=== PATIENT | female | born 1965 | race Caucasian/White ===

== ENCOUNTER 2019-09-15 17:48 | Inpatient (IN) ==
[2019-09-15] MEDS ORDERED: SODIUM CHLORIDE 0.9% 1000ML 1,000 ML IV ONE (18:02)
[2019-09-15] MEDS ORDERED: ONDANSETRON INJ 2 MG/ML 2 ML VIAL IV STA (18:02)
[2019-09-15] MEDS ORDERED: KETOROLAC TROMETHAMINE 15 MG/ML VIAL IV STA (18:02)
--- NOTE | 2019-09-15 18:05 | Emergency Department Note ---
History of Present Illness General Chief complaint: Vomiting Stated complaint: VOMITING, GENERAL MALAISE Time Seen by Provider: 09/15/19 17:54 History of Present Illness Provider complaint: Vomiting Onset (ago): day(s) 4 Location: abdomen Radiation: abdomen Severity: moderate Maximum Pain Intensity: 6 Current Pain Intensity: 6 Quality: + stabbing, + aching, + sharp and + dull Relieved By: + none Exacerbated By: + eating Associated symptoms: + nausea/vomiting; no confusion, no chest pain, no cough, no fever/chills, no headaches and no shortness of breath 53-year-old female presents emergency department with vomiting. She states that she began vomiting on 1 hour after eating some [employer] wings. She states since she has vomited 6-8 times. No hematemesis, coffee-ground emesis, or bilious vomiting. No melena or hematochezia. She also reports abdominal pain. Pain is located in the epigastric area. No chest pain. Patient also reports some shortness of breath. She reports feeling increasingly fatigued. No anosmia or loss of taste. No recent travel. No cough or hemoptysis. Patient does report she has a history of hypertension diabetes however she has not taken any medications in years due to her insurance status. Home Medications Home Medications Medication Instructions Recorded Confirmed Type No Known Home Medications 09/15/19 09/15/19 History Allergies Allergy/AdvReac Type Severity Reaction Status Date / Time No Known Allergies Allergy Verified 09/15/19 18:22 Past Med/Surg History Medical History (Updated 09/15/19 @ 20:32 by Tyron Molina) Diabetes Hypertension No pertinent family history Surgical History (Updated 09/15/19 @ 18:08 by Tyron Molina) S/P tubal ligation Social History Preferred Language: Urdu Feels Safe at Home: Yes Smoking Status: Never smoker Review of Systems A total of 10 systems reviewed and were otherwise negative Physical Exam Vital Signs Vital Signs - 24 hr 09/15/19 17:51 09/15/19 20:05 Temperature 36.8 C Temperature Source Oral Pulse Rate 117 H Pulse Rate [Right Finger] 81 Pulse Strength Normal Respiratory Rate 16 20 Respiratory Depth Normal Respiratory Pattern Regular Blood Pressure 155/83 H Blood Pressure [Left Arm] 144/86 H Blood Pressure Mean 107 Blood Pressure Mean [Left Arm] 105 Blood Pressure Position Sitting Pulse Oximetry 96 96 Oxygen Delivery Method Room Air Room Air Sepsis Recent Fever Within 48 Hours No Sepsis Action Taken by Nursing No Action Required Physical Exam GENERAL: She is oriented to person, place, and time. She appears well-developed and well-nourished. She does not appear distressed. HENT: Exam performed. -Head: Normocephalic and atraumatic. -Right Ear: External ear normal. No mastoid tenderness. -Left Ear: External ear normal. No mastoid tenderness. -Mouth/Throat: The oropharynx is clear and moist. No trismus in the jaw. No dental abscesses or uvula swelling. No oropharyngeal exudate or tonsillar abscesses. EYES: Conjunctivae and EOM are normal. Pupils are equal, round, and reactive to light. Right eye exhibits no discharge. Left eye exhibits no discharge. No scleral icterus. NECK: Normal range of motion. Neck supple. No JVD present. No spinous process tenderness present. No carotid bruit present. No rigidity. No tracheal deviation and normal range of motion present. No Brudzinski's sign and no Kernig's sign noted. CV: Tachycardic rate, regular rhythm, normal heart sounds and intact distal pulses. There is no peripheral edema. Palpable radial pulses bue. PULM/CHEST: Effort normal and breath sounds normal. No respiratory distress. No stridor. She has no wheezes. She has no rales. -Chest Wall: She exhibits no tenderness. ABD: The abdomen is obese and soft. Bowel sounds are normal. She has no distension. No mass is present. There is tenderness to palpation of the epigastric and right upper quadrant area. There is no rebound, no guarding, no Garcia's sign and no tenderness at McBurney's point. Rovsig negative MUSC/SKEL: Normal range of motion. There is no peripheral edema, tenderness or deformity. LYMPH: No cervical adenopathy. NEURO: She is alert and oriented to person, place, and time. She has normal str ength. No cranial nerve deficit or sensory deficit. Coordination and gait normal. GCS eye subscore is 4. GCS verbal subscore is 5. GCS motor subscore is 6. Cerebellar tests wnl. SKIN: Skin is warm and dry. She is not diaphoretic. PSYCH: She has a normal mood and affect. Behavior is normal. Judgment and thought content normal. Course Course 1754: The patient was evaluated in room B4. A complete history and physical exam was performed. 2025: Vital signs stable. Labs show an elevated lipase level as well as LFTs. Alkaline phosphatase is also elevated. Ultrasound shows acute cholecystitis. It is thought that the patient is also suffering from gallstone pancreatitis. CTA was negative for PE. I did discuss with general surgery Marcelino Newman PA-C concession supervisor for Dr. Weber he has had the patient be admitted to medicine service. I did discuss with [facility] as they are next for unassigned because the patient states she has no PCP. Dr. Cohen agreed to the admission. Rocephin and Flagyl started for the patient. Administered Medications Ceftriaxone Sodium (Rocephin) 1,000 mg in 50 mls @ 100 mls/hr IV NOW STA Stop: 09/15/19 20:51 Last Admin: 09/15/19 20:30 Dose: 100 mls/hr Documented by: Ioversol (Optiray 320 125ml) 120 ml IV ONCE PRN PRN Reason: Interaction Checking Stop: 09/19/19 19:51 Last Admin: 09/15/19 19:53 Dose: 120 ml Documented by: [id number] Discontinued Medications Sodium Chloride (Nss 1000ml) 1,000 mls @ 999 mls/hr IV .Q1H1M ONE Stop: 09/15/19 19:02 Last Infusion: 09/15/19 20:01 Dose: 0 mls/hr Documented by: [id number] Admin: 09/15/19 18:16 Dose: 999 mls/hr Documented by: [id number] Ketorolac Tromethamine (Toradol) 15 mg IV NOW STA Stop: 09/15/19 18:03 Last Admin: 09/15/19 18:16 Dose: 15 mg Documented by: [id number] Ondansetron HCl (Zofran) 4 mg IV NOW STA Stop: 09/15/19 18:03 Last Admin: 09/15/19 18:16 Dose: 4 mg Documented by: [id number] Medical Decision Making Laboratory Data Result diagrams: 09/15/19 18:10 09/15/19 18:10 Lab Results 09/15/19 09/15/19 09/15/19 Range/Units 18:04 18:10 18:10 WBC 10.47 (4.8-10.8) K/uL RBC 4.91 (4.2-5.4) M/uL Hgb 15.2 (12.0-16.0) g/dL Hct 43.8 (37-47) % MCV 89.2 (80-100) fL MCH 31.0 (25-34) pg MCHC 34.7 (32-36) g/dL RDW Std Deviation 45.1 (36.4-46.3) fL RDW Coeff of Galdino 13.9 (11.5-14.5) % Plt Count 281 (130-400) K/uL MPV 9.6 (7.4-10.4) fL Immature Gran % (Auto) 0.7 % Neut % (Auto) 77.1 % Lymph % (Auto) 7.4 % Terry % (Auto) 13.9 % Eos % (Auto) 0.8 % Baso % (Auto) 0.1 % Immature Gran # (Auto) 0.07 H (0.00-0.02) K/uL Neut # (Auto) 8.08 H (1.4-6.5) K/uL Lymph # (Auto) 0.77 L (1.2-3.4) K/uL Terry # (Auto) 1.46 H (0.11-0.59) K/uL Eos # (Auto) 0.08 (0-0.5) K/uL Baso # (Auto) 0.01 (0-0.2) K/uL PT (9.0-12.0) Seconds INR (0.9-1.1) APTT (21.0-31.0) Seconds PTT Ratio D-Dimer (0-500) ug/L FEU Sodium 134 L (136-145) mmol/L Potassium 3.1 L (3.5-5.1) mmol/L Chloride 101 (98-107) mmol/L Carbon Dioxide 17 L (21-32) mmol/L Anion Gap 16.0 H (3-11) BUN 9 (7-18) mg/dl Creatinine 0.73 (0.6-1.2) mg/dl Est Cr Clr Drug Dosing 102.3 ml/min Est GFR ( Amer) 109.7 Est GFR (Non-Af Amer) 94.7 BUN/Creatinine Ratio 12.7 (10-20) Glucose 286 H (70-99) mg/dl Calcium 9.4 (8.5-10.1) mg/dl Total Bilirubin 8.0 H (0.2-1) mg/dl Direct Bilirubin 6.9 H (0-0.2) mg/dl AST 213 H (15-37) U/L ALT 503 H (12-78) U/L Alkaline Phosphatase 785 H (45-117) U/L Troponin I < 0.015 (0-0.045) ng/ml Total Protein 8.5 H (6.4-8.2) gm/dl Albumin 2.9 L (3.4-5.0) gm/dl Lipase 2565 H (73-393) U/L Urine Color Sunita Urine Appearance Slightly Cloudy A (Clear) Urine pH (4.5-7.5) Ur Specific [place] > 1.035 H (1.000-1.030) Urine Protein (Negative) Urine Glucose (UA) (Negative) Urine Ketones (Negative) Urine Blood (Negative) Urine Nitrite (Negative) Urine Bilirubin (Negative) Urine Urobilinogen (Negative) Ur Leukocyte Esterase (Negative) Urine RBC 0-4 (0-4) /hpf Urine WBC 5-10 H (0-5) /hpf Ur Epithelial Cells >30 H (0-5) /lpf Urine Bacteria 2+ H (Negative) Hyaline Casts 5-10 H (0-5) /lpf 09/15/19 09/15/19 Range/Units 18:10 18:10 WBC (4.8-10.8) K/uL RBC (4.2-5.4) M/uL Hgb (12.0-16.0) g/dL Hct (37-47) % MCV (80-100) fL MCH (25-34) pg MCHC (32-36) g/dL RDW Std Deviation (36.4-46.3) fL RDW Coeff of Galdino (11.5-14.5) % Plt Count (130-400) K/uL MPV (7.4-10.4) fL Immature Gran % (Auto) % Neut % (Auto) % Lymph % (Auto) % Terry % (Auto) % Eos % (Auto) % Baso % (Auto) % Immature Gran # (Auto) (0.00-0.02) K/uL Neut # (Auto) (1.4-6.5) K/uL Lymph # (Auto) (1.2-3.4) K/uL Terry # (Auto) (0.11-0.59) K/uL Eos # (Auto) (0-0.5) K/uL Baso # (Auto) (0-0.2) K/uL PT 11.3 (9.0-12.0) Seconds INR 1.1 (0.9-1.1) APTT 27.3 (21.0-31.0) Seconds PTT Ratio 1.0 D-Dimer 1730 H* (0-500) ug/L FEU Sodium (136-145) mmol/L Potassium (3.5-5.1) mmol/L Chloride (98-107) mmol/L Carbon Dioxide (21-32) mmol/L Anion Gap (3-11) BUN (7-18) mg/dl Creatinine (0.6-1.2) mg/dl Est Cr Clr Drug Dosing ml/min Est GFR ( Amer) Est GFR (Non-Af Amer) BUN/Creatinine Ratio (10-20) Glucose (70-99) mg/dl Calcium (8.5-10.1) mg/dl Total Bilirubin (0.2-1) mg/dl Direct Bilirubin (0-0.2) mg/dl AST (15-37) U/L ALT (12-78) U/L Alkaline Phosphatase (45-117) U/L Troponin I (0-0.045) ng/ml Total Protein (6.4-8.2) gm/dl Albumin (3.4-5.0) gm/dl Lipase (73-393) U/L Urine Color Urine Appearance (Clear) Urine pH (4.5-7.5) Ur Specific [place] (1.000-1.030) Urine Protein (Negative) Urine Glucose (UA) (Negative) Urine Ketones (Negative) Urine Blood (Negative) Urine Nitrite (Negative) Urine Bilirubin (Negative) Urine Urobilinogen (Negative) Ur Leukocyte Esterase (Negative) Urine RBC (0-4) /hpf Urine WBC (0-5) /hpf Ur Epithelial Cells (0-5) /lpf Urine Bacteria (Negative) Hyaline Casts (0-5) /lpf Imaging Data Radiologist's Impression: CHEST CTA for PULMONARY ARTERIES CT DOSE: 617.63 mGy.cm HISTORY: Elevated d-dimer. Right-sided chest pain. TECHNIQUE: Multiaxial CT images of the chest were performed following the intravenous administration of contrast to evaluate the pulmonary arteries. Maximal intensity projection images were also obtained. A dose lowering technique was utilized adhering to the principles of ALARA. COMPARISON STUDY: Chest 09/15/2019. FINDINGS: Normal caliber thoracic aorta with no evidence for dissection. The heart is normal in size. No pleural or pericardial effusions. No filling defects within the pulmonary arteries to suggest pulmonary embolus. Limited views of the upper abdomen demonstrate mild intrahepatic bile duct dilatation. The visualized adrenal glands and spleen are unremarkable. A few subcentimeter thyroid nodules. Normal esophagus. No mediastinal or hilar lymphadenopathy. No suspicious lytic are blastic osseous lesions. No pneumothorax. The central airways are patent. The lungs are clear. IMPRESSION: 1. No evidence for pulmonary embolus. 2. Mild intrahepatic bile duct dilatation. ACT 112: Negative or not required by law. Electronically signed by: Thomas Garcia M.D. 09/15/2019 8:18 PM Dictated: 09/15/192011 Transcribed: 09/15/192011 ABDOMINAL ULTRASOUND, RIGHT UPPER QUADRANT HISTORY: Right upper quadrant pain. Vomiting.. COMPARISON: None. FINDINGS: Pancreas: The pancreatic tail is obscured by overlying bowel gas. The remaining portions of the pancreas are within normal limits. Liver: The liver is echogenic consistent with fatty change. 19 cm in length. There is intrahepatic bile duct dilatation. Gallbladder: Mild gallbladder wall thickening. The gallbladder is filled with sludge and stones. Pain medication was administered prior to examination, therefore, a sonographic Garcia sign was unable to be assessed. CBD: 1 cm. Right kidney: No hydronephrosis. IMPRESSION: 1. The gallbladder is filled with stones and sludge. There is mild gallbladder wall thickening and dilatation of the common bile duct. Findings are concerning for acute cholecystitis. Clinical correlation recommended. 2. Mild hepatomegaly demonstrating fatty change. ACT 112: Negative or not required by law. Electronically signed by: Thomas Garcia M.D. 09/15/2019 7:08 PM Dictated: 09/15/191905 Transcribed: 09/15/191905 CHEST AND ABDOMEN 2 VIEWS HISTORY: Right upper quadrant and epigastric pain with vomiting. COMPARISON: None. FINDINGS: The lungs are clear. The cardiomediastinal silhouette is within normal limits. There is no pneumoperitoneum or pneumatosis. The bowel gas pattern is unremarkable. No evidence for bowel obstruction. No pathologic calcifications. IMPRESSION: No acute cardiopulmonary process. No evidence for bowel obstruction. ACT 112: Negative or not required by law. Electronically signed by: Thomas Garcia M.D. 09/15/2019 6:49 PM Dictated: 09/15/191847 Transcribed: 09/15/191847 ECG Data Rate (beats per minute): 98 Rhythm: + normal sinus ECG Intervals/blocks: + Normal QRS, + Normal MO and + Normal QT-c ECG ST segments: + T-wave inversions (Leads III and aVF) Additional Comments: S1Q3T3 pattern present MDM Narrative Vital signs stable. Labs show an elevated lipase level as well as LFTs. Alkaline phosphatase is also elevated. Ultrasound shows acute cholecystitis. It is thought that the patient is also suffering from gallstone pancreatitis. CTA was negative for PE. I did discuss with general surgery Marcelino Newman PA-C concession supervisor for Dr. Weber he has had the patient be admitted to medicine service. I did discuss with [facility] as they are next for unassigned because the patient states she has no PCP. Dr. Cohen agreed to the admission. Rocephin and Flagyl started for the patient. Impression & Plan Acalculous cholecystitis, Acute gallstone pancreatitis Discharge Plan Visit Data Chief Complaint: Vomiting Stated Complaint: VOMITING, GENERAL MALAISE ED Provider: Tyron Molina Discharge Problem: Acalculous cholecystitis, Acute gallstone pancreatitis Patient Disposition: Admitted As Inpatient Forms Stand Alone Forms: My [employer] Prescriptions Prescriptions: No Action No Known Home Medications RF: 0 Referrals Referrals: PT,DECLINED [Primary Care Provider] -
[2019-09-15 18:23] LABS: Basophils # (auto) 0.01 K/uL (0-0.2); Basophils % (auto) 0.1 %; Eosinophils # (auto) 0.08 K/uL (0-0.5); Eosinophils % (auto) 0.8 %; Hematocrit (blood only) 43.8 % (37-47); Hemoglobin 15.2 g/dL (12.0-16.0); Immature Granulocytes # (auto) 0.07 K/uL (0.00-0.02); Immature Granulocytes % (auto) 0.7 %; Lymphocytes # (auto) 0.77 K/uL (1.2-3.4); Lymphocytes % (auto) 7.4 %; Mean Corpuscular Hgb Conc 34.7 g/dL (32-36); Mean Corpuscular Volume 89.2 fL (80-100); Mean Platelet Volume 9.6 fL (7.4-10.4); Monocytes # (auto) 1.46 K/uL (0.11-0.59); Monocytes % (auto) 13.9 %; Neutrophils # (auto) 8.08 K/uL (1.4-6.5); Neutrophils % (auto) 77.1 %; Platelet Count 281 K/uL (130-400); RDW Coefficient of Variation 13.9 % (11.5-14.5); RDW Standard Deviation 45.1 fL (36.4-46.3); Red Blood Count 4.91 M/uL (4.2-5.4); White Blood Count 10.47 K/uL (4.8-10.8)
[2019-09-15 18:35] LABS: INR 1.1 (0.9-1.1); Partial Thromboplastin Time 27.3 Seconds (21.0-31.0); Prothrombin Time 11.3 Seconds (9.0-12.0)
[2019-09-15 18:43] LABS: Appearance Urine Slightly Cloudy (Clear); Color Urine Amber; Ictotest Urine Positive (Negative); Specific Gravity Urine > 1.035 (1.000-1.030); Sulfosalicylic Acid Urine Positive (Negative)
[2019-09-15 18:47] LABS: Alanine Aminotransferase 503 U/L (12-78); Albumin Level 2.9 gm/dl (3.4-5.0); Alkaline Phosphatase 785 U/L (45-117); Aspartate Aminotransferase 213 U/L (15-37); BUN Creatinine Ratio 12.7 (10-20); Bilirubin Direct 6.9 mg/dl (0-0.2); Blood Urea Nitrogen 9 mg/dl (7-18); Calcium 9.4 mg/dl (8.5-10.1); Carbon Dioxide 17 mmol/L (21-32); Chloride 101 mmol/L (98-107); Creatinine Clr Calc Pharmacy 102.3 ml/min; Est GFR (African American) 109.7; Est GFR (Non-African American) 94.7; Glucose 286 mg/dl (70-99); Lipase 2565 U/L (73-393); Potassium 3.1 mmol/L (3.5-5.1); Sodium 134 mmol/L (136-145); Total Protein 8.5 gm/dl (6.4-8.2); Troponin I < 0.015 ng/ml (0-0.045)
[2019-09-15 18:48] LABS: Bacteria Urine 2+ (Negative); Epithelial Cell Urine >30 /lpf (0-5); RBC Urine 0-4 /hpf (0-4)
--- NOTE | 2019-09-15 18:50 | XRay Report ---
CHEST AND ABDOMEN 2 VIEWS HISTORY: Right upper quadrant and epigastric pain with vomiting. COMPARISON: None. FINDINGS: The lungs are clear. The cardiomediastinal silhouette is within normal limits. There is no pneumoperitoneum or pneumatosis. The bowel gas pattern is unremarkable. No evidence for b owel obstruction. No pathologic calcifications. IMPRESSION: No acute cardiopulmonary process. No evidence for bowel obstruction. ACT 112: Negative or not required by law. Electronically signed by: Thomas Garcia M.D. 09/15/2019 6:49 PM
[2019-09-15 19:00] LABS: D Dimer 1730 ug/L FEU (0-500)
--- NOTE | 2019-09-15 19:09 | Ultrasound Report ---
ABDOMINAL ULTRASOUND, RIGHT UPPER QUADRANT HISTORY: Right upper quadrant pain. Vomiting.. COMPARISON: None. FINDINGS: Pancreas: The pancreatic tail is obscured by overlying bowel gas. The remaining portions of the pancr eas are within normal limits. Liver: The liver is echogenic consistent with fatty change. 19 cm in length. There is intrahepatic bi le duct dilatation. Gallbladder: Mild gallbladder wall thickening. The gallbladder is filled with sludge and stones. Pain medication was administered prior to examination, therefore, a sonographic Garcia sign was unable to be assessed. CBD: 1 cm. Right kidney: No hydronephrosis. IMPRESSION: 1. The gallbladder is filled with stones and sludge. There is mild gallbladder wall thickening and di latation of the common bile duct. Findings are concerning for acute cholecystitis. Clinical correlati on recommended. 2. Mild hepatomegaly demonstrating fatty change. ACT 112: Negative or not required by law. Electronically signed by: Thomas Garcia M.D. 09/15/2019 7:08 PM
[2019-09-15] MEDS ORDERED: OPTIRAY 320 125ml IV PRN (19:52)
--- NOTE | 2019-09-15 20:20 | CT Scan Report ---
CHEST CTA for PULMONARY ARTERIES CT DOSE: 617.63 mGy.cm HISTORY: Elevated d-dimer. Right-sided chest pain. TECHNIQUE: Multiaxial CT images of the chest were performed following the intravenous administration of contrast to evaluate the pulmonary arteries. Maximal intensity projection images were also obtaine d. A dose lowering technique was utilized adhering to the principles of ALARA. COMPARISON STUDY: Chest 09/15/2019. FINDINGS: Normal caliber thoracic aorta with no evidence for dissection. The heart is normal in size. No pleural or pericardial effusions. No filling defects within the pulmonary arteries to suggest pul monary embolus. Limited views of the upper abdomen demonstrate mild intrahepatic bile duct dilatation . The visualized adrenal glands and spleen are unremarkable. A few subcentimeter thyroid nodules. Nor mal esophagus. No mediastinal or hilar lymphadenopathy. No suspicious lytic are blastic osseous lesio ns. No pneumothorax. The central airways are patent. The lungs are clear. IMPRESSION: 1. No evidence for pulmonary embolus. 2. Mild intrahepatic bile duct dilatation. ACT 112: Negative or not required by law. Electronically signed by: Thomas Garcia M.D. 09/15/2019 8:18 PM
[2019-09-15] MEDS ORDERED: metroNIDAZOLE 500 MG/100 ML BAG IV STA (20:22)
[2019-09-15] MEDS ORDERED: cefTRIAXone SODIUM 1,000 MG/50 ML BAG IV STA (20:22)
--- NOTE | 2019-09-15 21:06 | Surgery Consultation ---
Date of Consultation September 15, 2019 Assessment & Plan (1) Acalculous cholecystitis: -pt. to be admitted by medicine service; case was discussed with them: -NPO -antibiotics -hydration with IVF -serial labs -pain control measures -due to elevated LFT and dilated CBD, obtain MRCP and if concern for choledocholithiasis will ask for GI consult and possible ERCP -surgical intervention will be entertained once pancreatitis improved and above noted items are addressed (2) Acute gallstone pancreatitis: see plan above History of Present Illness History of Present Illness 53 year old female presented to ED due to nearly 4 days of nausea and vomiting. She notes she has very little oral intake the past 4 days, but after eating some fruit today became nauseated with epigastric abdominal pain. She has no fevers, shakes, chills. No CP or SOB. No change in bowel habits. She reports an intentional 50 pound weight loss over the past year (done with diet). She notes she is fairly active and can climb at least 2 flights of steps without chest pain. In the ED, she had a GB US that showed stones and sludge in the GB with GB wall thickening and a dilated CBD concerning for acute cholecystitis. She was noted to have elevated direct bilirubin, as well as elevated lipase, and LFTS. At the time of my exam she was not in distress and her pain was well controlled. Allergies Allergy/AdvReac Type Severity Reaction Status Date / Time No Known Allergies Allergy Verified 09/15/19 18:22 Home Medications Home Medications Medication Instructions Recorded Confirmed Type No Known Home Medications 09/15/19 09/15/19 History Patient History Medical History (Updated 09/15/19 @ 20:32 by Tyron [facility]) Diabetes Hypertension No pertinent family history Surgical History (Updated 09/15/19 @ 18:08 by Tyron [facility]) S/P tubal ligation Social History Preferred Language: Nepali Feels Safe at Home: Yes Smoking Status: Never smoker Review of Systems Constitutional: no fever, no sweats and no weakness Eyes: no diplopia Ear, Nose, Mouth, Throat: no ear pain Respiratory: no cough and no dyspnea Cardiovascular: no chest pain Gastrointestinal: + abdominal pain, + nausea and + vomiting; no dysphagia, no change in bowel habits and no diarrhea/loose stools Genitourinary: no dysuria Musculoskeletal: no back pain Integumentary: no rash Neurologic: no localized weakness Physical Exam Constitutional: well developed and well nourished; no acute distress Eyes: no conjunctival abnormality no scleral jaundice ENMT: Ears: no hearing impairment no sublingual jaundice Neck: trachea midline Respiratory: normal respiratory effort, lungs clear to auscultation Cardiovascular: Rate/Rhythm: regular rate and regular rhythm Vessels: dorsalis pedis pulses present and radial pulses present Gastrointestinal (Abdomen): Inspection/Auscultation: abdomen not distended Percussion/Palpation: + abdomen tender (epigastric pain with deep palpation and RUQ pain with deep palpation ) and abdomen soft Musculoskeletal: no calf tenderness; no foot wounds Skin: no rashes, warm and dry Neurologic: moves all extremities Psychiatric: A+Ox3, euthymic affect Results & Data Vital Signs (Past 12 Hours) Vital Signs Temp Pulse Pulse Resp BP BP Pulse Ox 09/15/19 20:05 81 20 144/86 H 96 09/15/19 17:51 36.8 C 117 H 16 155/83 H 96 PG Care Time/CCT Total # of Minutes Spent Total Time Spent with Patient: Total time spent is greater than 50% in coordination of care (as documented) at patient's floor/unit and/or counseling patient: Coding Level of Care Code 24468 Inpt Consult Level 5 Diagnoses Acalculous cholecystitis K81.9 Acute gallstone pancreatitis K85.10
[2019-09-15] MEDS ORDERED: POTASSIUM CHLORIDE 20 MEQ/15 ML UDC PO STA (21:07)
[2019-09-15] MEDS ORDERED: HydrALAZINE HCL 20 MG/ML VIAL IV PRN (21:57)
[2019-09-15] MEDS ORDERED: INSULIN ASPART 100 UNITS/ML 3 ML PEN SC SCH (21:57)
[2019-09-15] MEDS ORDERED: ACETAMINOPHEN 325 MG TAB PO PRN (21:57)
[2019-09-15] MEDS ORDERED: ONDANSETRON INJ 2 MG/ML 2 ML VIAL IV PRN (21:57)
[2019-09-15] MEDS: LACTATED RINGER'S 1,000 ML IV SCH (22:23)
[2019-09-15] MEDS: CIPROFLOXACIN / D5W 400 MG/200 ML BAG IV SCH (22:24)
--- NOTE | 2019-09-15 23:15 | History and Physical Report ---
DATE OF ADMISSION: 09/15/2019 CHIEF COMPLAINT: Abdominal pain. HISTORY OF PRESENT ILLNESS: This 53-year-old female with past medical history significant for diabetes and hypertension, no longer taking medications since lost insurance about 2 years ago. Lives with her .Presents with abdominal pain in the epigastric region radiating to the back, started on last after eating [employer]tang[employer] wings. She is nauseous. Pain t initially in the first couple of days was 10/10 in severity but today before she come in here it was 8/10 severity. With pain medications it is mild now. Denies any fever, chills, somewhat constipated, but that is normal to her. Denies any blood in stools or black stools. Normal bladder movements. No hematuria or burning micturition, no swelling in the legs. No rash. No sick contacts, no travel outside the [place]. No loss of smell or taste. No shortness of breath, no chest pain. Denies any fever, chills, no sore throat, no difficulty swallowing. Appetite is down last few days, feeling weak. Denies any headaches, no blurred vision, no earache, no runny nose, no sore throat. Currently resting comfortably and hemodynamically stable. ALLERGIES: No known drug allergies. PAST MEDICAL HISTORY: As mentioned above. PAST SURGICAL HISTORY: Tubal ligation. MEDICATIONS: None. FAMILY HISTORY: Significant for diabetes and heart disease. SOCIAL HISTORY: Denies smoking, alcohol occasionally. No drug use. Lives with her . REVIEW OF SYMPTOMS: As per HPI. Rest of review of symptoms negative. PHYSICAL EXAMINATION: GENERAL: The patient is obese, not in acute distress. VITAL SIGNS: Temperature 36.8, pulse 81, respiratory rate 20, blood pressure 144/86, oxygen 96% room air. HEENT: Pupils equal, round, reactive to light. Extraocular muscles intact. NECK: Supple. CARDIOVASCULAR: S1, S2 heard, regular rate and rhythm, no murmur, no gallop. RESPIRATORY SYSTEM: Normal AP diameter. No accessory muscle use. No wheezing, no crackles. ABDOMEN: Soft, bowel sounds present. Currently nontender. No distention, no guarding. CENTRAL NERVOUS SYSTEM: Cranial nerves II-XII grossly intact. Nonfocal. EXTREMITIES: No edema, no erythema. LABORATORY DATA: WBC 10.4, hemoglobin 15.3, hematocrit 43.8, platelets 281. PT 11.3 , INR 1.1, APTT 27.3. D-dimer 1730. Sodium 134, potassium 3.1, chloride 101, bicarbonate 17, BUN 9, creatinine 0.7, serum glucose 286, calcium 9.4, total bilirubin 8, direct bilirubin 6.9, AST 213, ALT 503, alkaline phosphatase 185. Troponin I less than 0.015. Lipase 2565. Urinalysis, slightly cloudy, 2+ bacteria. IMAGING: Chest and abdominal x-ray: No acute cardiopulmonary process. No evidence of bowel obstruction. Gallbladder ultrasound shows the gallbladder is filled with stones and sludge. There is mild gallbladder wall thickening and dilatation of common bile duct, clinical concern for acute cholecystitis, mild hepatomegaly demonstrating fatty change. Chest CTA, no evidence of pulmonary embolus, mild intrahepatic biliary ductal dilatation. EKG: Normal sinus rhythm with rate of 98 with changes in inferior leads. No previous EKG to compare. ASSESSMENT AND PLAN: This is a 53-year-old female who presents with abdominal pain, nausea and found to have gallstone pancreatitis with possible choledocholithiasis and elevated LFTs. 1. Acute cholecystitis with gallstone pancreatitis, possibly choledocholithiasis:currently afebrile and no leukocytosis. hemodynamically stable, but her total bilirubin is 8, direct bilirubin 6.9, AST, ALT, and alkaline phosphatase elevated and lipase is 2565. Gallbladder, gallstones and also dilatation of the common bile duct. Will start on LR@200 mL per hour, IV Dilaudid p.r.n., IV Zofran p.r.n., IV Cipro and Flagyl, will get MRCP, surgery and GI consulted. Surgery is seeing the patient today. Will follow the repeat labs in a.m. Closely monitor in the medical floor. 2. History of diabetes, not currently on medications, follow HbA1c levels, placed on insulin sliding scale. 3. History of hypertension, not on medication. We will monitor blood pressure and IV hydralazine p.r.n. for now. 4. Deep vein thrombosis prophylaxis, sequential compression devices. 5. Disposition: Close monitoring in the medical floor. Level 1, full code. MTDD
[2019-09-16] MEDS: HYDROmorphone INJ 0.5 MG/0.5 ML SYR IV PRN ×2 (00:34→20:20)
[2019-09-16] MEDS ORDERED: Nursing to Pharmacy Communication ONE ×2 (01:19→16:28)
[2019-09-16] MEDS ORDERED: DEXTROSE 50% 50 ML SYRINGE IV PRN ×2 (01:30→09:34)
[2019-09-16] MEDS ORDERED: GLUCOSE 40% GEL 15 GM TUBE PO PRN ×2 (01:30→09:34)
[2019-09-16] MEDS ORDERED: CARBOHYDRATES FOR HYPOGLYCEMIA PO PRN ×2 (01:30→09:34)
[2019-09-16] MEDS ORDERED: GLUCOSE 10 TABS/TUBE PO PRN ×2 (01:30→09:34)
[2019-09-16] MEDS ORDERED: GLUCAGON FOR INJ 1 MG VIAL SQ PRN ×2 (01:30→09:34)
[2019-09-16] MEDS: metroNIDAZOLE 500 MG/100 ML BAG IV SCH ×3 (03:42→20:25)
[2019-09-16 05:14] LABS: Basophils # (auto) 0.01 K/uL (0-0.2); Basophils % (auto) 0.1 %; Eosinophils # (auto) 0.06 K/uL (0-0.5); Eosinophils % (auto) 0.7 %; Hematocrit (blood only) 38.4 % (37-47); Hemoglobin 12.9 g/dL (12.0-16.0); Immature Granulocytes # (auto) 0.07 K/uL (0.00-0.02); Immature Granulocytes % (auto) 0.8 %; Lymphocytes # (auto) 1.24 K/uL (1.2-3.4); Lymphocytes % (auto) 13.8 %; Mean Corpuscular Hemoglobin 29.9 pg (25-34); Mean Corpuscular Hgb Conc 33.6 g/dL (32-36); Mean Corpuscular Volume 89.1 fL (80-100); Mean Platelet Volume 9.4 fL (7.4-10.4); Monocytes # (auto) 0.63 K/uL (0.11-0.59); Neutrophils # (auto) 6.99 K/uL (1.4-6.5); Neutrophils % (auto) 77.6 %; Platelet Count 233 K/uL (130-400); RDW Coefficient of Variation 13.9 % (11.5-14.5); RDW Standard Deviation 45.3 fL (36.4-46.3); Red Blood Count 4.31 M/uL (4.2-5.4)
[2019-09-16] MEDS: LACTATED RINGER'S 1,000 ML IV SCH ×3 (05:45→17:06)
[2019-09-16 05:49] LABS: Albumin Level 2.3 gm/dl (3.4-5.0); BUN Creatinine Ratio 10.5 (10-20); Bilirubin Direct 6.4 mg/dl (0-0.2); Bilirubin,Total 7.4 mg/dl (0.2-1); Calcium 8.8 mg/dl (8.5-10.1); Creatinine Clr Calc Pharmacy 103.7 ml/min; Est GFR (African American) 111.6; Est GFR (Non-African American) 96.3; Magnesium 1.8 mg/dl (1.8-2.4); Potassium 4.3 mmol/L (3.5-5.1); Total Protein 6.9 gm/dl (6.4-8.2)
[2019-09-16] MEDS: INSULIN ASPART 100 UNITS/ML 3 ML PEN SC SCH ×4 (05:56→21:54)
[2019-09-16 06:48] LABS: Estimated Average Glucose 315 mg/dl; Hemoglobin A1C 12.6 % (4.5-5.6)
--- NOTE | 2019-09-16 07:00 | Magnetic Resonance Report ---
MR MRCP CLINICAL HISTORY: 53 years-old Female presenting with gall stone pancreatitis, elevated lft's, nausea and vomiting on and Monday, concern for cholecystitis on ultrasound. TECHNIQUE: Multisequence, multiplanar MR imaging of the abdomen was performed without the use of intr avenous contrast. Dedicated MRCP protocol was utilized. 3-D volumetric and/or maximum intensity proje ction (MIP) images were subsequently reconstructed for review. IV contrast: None. COMPARISON: Right upper quadrant ultrasound 09/15/2019. FINDINGS: Localizer images: Unremarkable. Lung bases: Normal heart size. No pericardial or pleural effusion. Lung base clear. Liver: Normal morphology. Biliary: Mild intrahepatic and moderate extrahepatic biliary ductal dilatation. No aberrant duct is a ppreciated. Common duct measures 9 mm. Gallbladder distended with numerous gallstones and evidence of gallbladder wall thickening. Pericholecystic fat infiltration/fluid. 6 mm calculus noted in the cyst ic duct. Extensive choledocholithiasis. Pancreas: Moderate parenchymal atrophy. No peripancreatic fat infiltration or peripancreatic fluid is appreciated. No pancreatic ductal dilatation or pancreas divisum. Spleen: Normal noncontrast appearance. Adrenal glands: Normal noncontrast appearance. Kidneys and ureters: Scarring at the upper pole of the right kidney may be present. No hydronephrosis . Normal ureters. Bowel: Normal noncontrast appearance. No bowel obstruction. Peritoneal cavity: No free fluid. Lymph nodes: No gross lymphadenopathy allowing for noncontrast technique. Vasculature: Normal noncontrast appearance. Abdominal wall: Normal. Musculoskeletal: Normal. IMPRESSION: 1. Findings highly suspicious for acute calculus cholecystitis with extensive choledocholithiasis. E PLASTIC CUTTER to be considered as well as surgical consultation. 2. No convincing evidence of pancreatitis, which does not exclude the diagnosis. Correlate with lipa se. The report will be called/faxed according to standard departmental protocol. ACT 112: Negative or not required by law. Electronically signed by: Keo Sommer M.D. 09/16/2019 6:58 AM
--- NOTE | 2019-09-16 08:57 | Electrocardiogram Report ---
Test Reason : Blood Pressure : / mmHG Vent. Rate : 098 BPM Atrial Rate : 098 BPM P-R Int : 160 ms QRS Dur : 092 ms QT Int : 370 ms P-R-T Axes : 065 077 -01 degrees QTc Int : 472 ms Normal sinus rhythm Poor R wave progression, consider anterior VT vs. lead placement vs. LVH T wave abnormality, consider inferior ischemia Abnormal ECG No previous ECGs available Confirmed by Ciro Chand ([id number]) on 09/16/2019 8:56:51 AM Referred By: REFERRED SELF Confirmed By:Ciro Chand
[2019-09-16] MEDS ORDERED: INDOMETHACIN 50 MG SUPP PR SCH (09:00)
--- NOTE | 2019-09-16 09:18 | Surgery Progress Note ---
Date of Service September 16, 2019 Subjective feels little better this Am, NPO Physical Exam Gastrointestinal (Abdomen): Percussion/Palpation: + abdomen tender (mild RUQ/epigastric) and abdomen soft Results & Data Vital Signs (Past 12 Hours) Vital Signs Temp Pulse Resp BP Pulse Ox 09/16/19 07:51 36.7 C 78 18 127/81 95 09/15/19 23:16 36.7 C 102 H 20 155/88 H 97 09/15/19 21:21 80 18 133/68 97 PG Care Time/CCT Total # of Minutes Spent Total Time Spent with Patient: Total time spent is greater than 50% in coordination of care (as documented) at patient's floor/unit and/or counseling patient: Coding Level of Care Code 40095 Subseq Hosp Care Lvl 1
--- NOTE | 2019-09-16 09:19 | Anesthesiology Consultation ---
Date of Service September 16, 2019 Assessment & Plan (1) Encounter for pre-operative examination: Chart Review Chart Review: Acceptable Risk for Surgery Consults Requested none ASA ASA3 Proposed Anesthesia Anesthesia Type: General Risk / Benefits Reviewed With: PT / POA / Parent / Guardian, Accepts Plan and Informed Consent Obtained History Surgery Operation Date: 09/16/19 07:00 Proposed Procedures p Endoscopic Retrograde Cholangiopancreatogram - Sergio Zeeshan lugo Laparoscopic Cholecystectomy with Cholangiogram - Lefty Quinones MD Height/Weight Height: 5 ft 2 in Weight: 104.5 kg Allergies Allergy/AdvReac Type Severity Reaction Status Date / Time No Known Allergies Allergy Verified 09/15/19 18:22 Medications Home Medications Medication Instructions Recorded Confirmed Last Taken No Known Home Medications 09/15/19 09/15/19 Unknown Active Medications Generic Name Dose Route Start Last Admin Trade Name Freq PRN Reason Stop Dose Admin Hydromorphone HCl 0.5 mg 09/15/19 21:57 09/16/19 00:34 Dilaudid IV 09/29/19 21:56 0.5 mg Q3H PRN Administration Pain Lactated Ringer's 1,000 mls @ 200 mls/hr 09/15/19 21:57 09/16/19 06:32 Lr IV 10/15/19 21:56 200 mls/hr .Q5H VERONICA Infusion Ciprofloxacin 400 mg in 200 mls @ 100 mls/hr 09/15/19 22:00 09/16/19 09:45 Cipro IV 09/25/19 21:59 100 mls/hr Q12H VERONICA Administration Protocol Metronidazole 500 mg in 100 mls @ 100 mls/hr 09/16/19 04:00 09/16/19 04:42 Flagyl IV 09/26/19 03:59 Infused Q8H VERONICA Infusion Insulin Aspart 0 units 09/16/19 06:00 09/16/19 05:56 Novolog Flexpen SC 10/16/19 05:59 3 units Q6 VERONICA Administration NPO Date Last Intake of Fluids: 09/15/19 Time Last Intake of Fluids: 23:59 Date Last Intake of Solids: 09/15/19 Time Last Intake of Solids: 23:59 Past Medical History Medical History Diabetes Hypertension Morbid obesity No pertinent family history Exercise / Class Metabolic Activity II 4-5 Yardwork/Stairs/Walk up hill Past Surgical History Surgical History S/P tubal ligation Past Anesthesia History No Hx of Anesthesia Complications and No Family Hx of Anesthesia Complications History of PONV No Hx of PONV and No Hx of Motion Sickness Social History Smoking Status: Never smoker Do You Dip or Chew Tobacco: No Hx Alcohol Use: No Hx Substance Use: No substance use type: does not use Physical Exam Vital Signs Last Vital Signs Temp 98.4 F 09/16/19 10:12 Pulse 79 09/16/19 10:12 Resp 18 09/16/19 10:12 BP 123/82 09/16/19 10:12 Pulse Ox 97 09/16/19 10:12 ENMT Mouth: no dentition abnormality Thyromental Distance: > or= 3.5 Finger Breadths Mallampati Class: II Neck normal visual inspection Respiratory normal respiratory effort Auscultation: lungs clear to auscultation bilaterally Cardiovascular Rate/Rhythm: regular rate and regular rhythm Testing Laboratory Results 09/16/19 04:57 09/16/19 04:57 PT 11.3 Seconds (9.0-12.0) 09/15/19 18:10 INR 1.1 (0.9-1.1) 09/15/19 18:10 APTT 27.3 Seconds (21.0-31.0) 09/15/19 18:10 Hemoglobin A1c 12.6 % (4.5-5.6) H 09/16/19 04:57 Urine Color [place] 09/15/19 18:04 Urine Appearance Slightly Cloudy (Clear) A 09/15/19 18:04 Urine pH (4.5-7.5) 09/15/19 18:04 Ur Specific [place] > 1.035 (1.000-1.030) H 09/15/19 18:04 Urine Protein (Negative) 09/15/19 18:04 Urine Glucose (UA) (Negative) 09/15/19 18:04 Urine Ketones (Negative) 09/15/19 18:04 Urine Nitrite (Negative) 09/15/19 18:04 Ur Leukocyte Esterase (Negative) 09/15/19 18:04 Urine RBC 0-4 /hpf (0-4) 09/15/19 18:04 Urine WBC 5-10 /hpf (0-5) H 09/15/19 18:04 Ur Epithelial Cells >30 /lpf (0-5) H 09/15/19 18:04 09/15/19 18:04 Urine Culture - Preliminary Urine,Clean Catch Pin-point growth present, reincubating. 09/16/19 05:51 POC Glucose 230 H Electrocardiogram Date: 09/15/19 Normal sinus rhythm, rate 98 bpm Poor R wave progression, consider anterior CO vs. lead placement vs. LVH T wave abnormality, consider inferior ischemia Abnormal ECG No previous ECGs available Confirmed by Ciro Chand ([id number]) on 09/16/2019 8:56:51 AM Chest X-Ray Date: 09/15/19 Findings: + NAD
[2019-09-16] MEDS ORDERED: ONDANSETRON INJ 2 MG/ML 2 ML VIAL ONE ×2 (09:26→14:54)
[2019-09-16] MEDS ORDERED: PROPOFOL IV EMULSION 10 MG/ML 20 ML VIAL IV ONE (09:26)
[2019-09-16] MEDS ORDERED: LIDOCAINE HCL 2% 2 ML VIAL/AMP(20MG/ML) INFIL ONE (09:26)
[2019-09-16] MEDS ORDERED: ROCURONIUM BROMIDE 10 MG/ML 5 ML VIAL ONE ×3 (09:26→12:25)
[2019-09-16] MEDS ORDERED: MIDAZOLAM HCL 1 MG/ML 2ML VIAL ONE (09:27)
[2019-09-16] MEDS ORDERED: fentaNYL citrate 100 MCG/2 ML VIAL ONE ×4 (09:27→14:00)
--- NOTE | 2019-09-16 09:29 | Gastrointestinal Consultation ---
Date of Consultation September 16, 2019 Assessment & Plan (1) Cholecystitis: Pt is a 53 y/o female presented w upper abd pain, n/v, upon evaluated noted to have elevated LFTs, lipase, abd imaging studies showed signs of gallstones, sludge, dilated CBD concerning for cholecystitis, choledocholithias is - Keep NPO - IVF resuscitation w LR - Plan for ERCP in OR today w Dr. Sregio Byers and possible lap cholecystectomy, timing to be determined by Surgery team - Monitor LFTs after procedures completed. - Symptomatic management w analgesics and antiemetics otherwise. Supervising Physician Co-Signing Physician Notes I saw and evaluated the patient. She presents with abdominal pain, elevated liver tests and imaging with evidence of choledocholithiasis. PE: Mild distress / abdominal tenderness Impression: patient with choledocholithiasis, we are planning for ERCP today with cholecystectomy. History of Present Illness Reason for Consultation: Gallstone Pancreatitis Requesting Physician: Dr. Jeet Morton Attending Physician: Dr. Sergio Byers History of Present Illness Pt is a 53 y/o female who presented w c/o pain across upper abd, n/v since last after eating some chicken wings. She initially thought she had food poisoning. Denies any fever, chills, CP SOB, diarrhea, sick contact. Upon evaluation, noted LFTs were elevated: Tbili 8, Dbili 6, AST 171, ALT 393, Alk phos 715. Also elevated Lipase 2565. U/S gallbladder, MRCP noted dilated CBD 1cm, also evidence of gallstones and sludge, concerning for acute cholecystitis. Her Ddimer was elevated but CTA negative for PE. She denies tobacco, ETOH, illicit drug uses. Denies family hx of GI malignancies. She had been kept NPO, on LR IVF. Lipase is currently normalized at 363. She is still having mild upper abd pain, but no n/v. Allergies Allergy/AdvReac Type Severity Reaction Status Date / Time No Known Allergies Allergy Verified 09/15/19 18:22 Home Medications Home Medications Medication Instructions Recorded Confirmed Type No Known Home Medications 09/15/19 09/15/19 History Patient History Medical History Diabetes Hypertension Morbid obesity No pertinent family history Surgical History S/P tubal ligation Social History Preferred Language: Georgian Communication Ability: Effective Marriage Counselor Minister Required: No Beliefs That Will Affect Care: None Current Living Situation: Spouse Other Information That Helps Us Care for You: No Feels Safe at Home: Yes Safety Concerns: Feels Safe At This Time Smoking Status: Never smoker Do You Dip or Chew Tobacco: No ; Hx Alcohol Use: No Hx Substance Use: No Review of Systems Review of Systems: All systems reviewed & are unremarkable except as noted in HPI & below Physical Exam Constitutional: WD/WN, vitals as above well groomed, cooperative and comfortable Eyes: PERRL, conjunctivae normal, anicteric sclerae ENMT: external ear and nose normal, oropharynx normal Respiratory: normal respiratory effort, lungs clear to auscultation Cardiovascular: RRR, no murmur, no edema Gastrointestinal (Abdomen): Percussion/Palpation: + abdomen tender (across upper quadrants. ) and abdomen soft Skin: no rashes, warm and dry + jaundice Neurologic: Motor/Sensory: no asterixis Psychiatric: A+Ox3, euthymic affect Lymphatic: no lymphedema Results & Data ([facility]) Vital Signs (Past 12 Hours) Vital Signs Temp Pulse Resp BP Pulse Ox 09/16/19 07:51 36.7 C 78 18 127/81 95 09/15/19 23:16 36.7 C 102 H 20 155/88 H 97
--- NOTE | 2019-09-16 09:32 | Hospitalist Progress Note ---
Date of Service September 16, 2019 Assessment & Plan (1) Cholecystitis: (2) Morbid obesity: (3) Acalculous cholecystitis: MRCP-IMPRESSION: 1. Findings highly suspicious for acute calculus cholecystitis with extensive choledocholithiasis. ERCP to be considered as well as surgical consultation. 2. No convincing evidence of pancreatitis, which does not exclude the diagnosis. Correlate with lipase. Surgery and GI on case Labs Checked ROS-No Headache, No Visual Changes, No Nausea, No Vomiting, No Fever, No Chills, No Neck Pain or Stiffness, No Chest Pain, No Palpitations, No SOB, No LAURA, No Cough, No Sputum, No Wheezing, +Abdominal Pain, No Diarrhea, No Hematemesis, No Hemoptysis, No Unexpected Weight Loss, No Flank pain, No Melena, No Hematochezia, No Frequency, No Urgency, No Burning, No Hematuria, No Rashes, No Diaphoresis. Appetite is Normal Physical Exam Gen-AAO x 3, NAD, Afebrile, Obese Head-NCAT, EOMI, PERRLA, Anicteric Sclera, No Posterior Pharyngeal Erythema Neck-Supple, No JVD, No Thyromegaly, No Masses, No LAD, No Bruits Lungs-Clear to Auscultation Bilaterally, No Rales, No Rhonchi, No Wheezing, No Crepitus Chest-No S4, +S1, +S2, No S3, No Murmurs, No Rubs, No Gallops, No Ectopy Abdomen-Soft, Bowel Sounds Present, Non Tender, Non Distended, No Hepatomegaly, No Splenomegaly, No Palpable Masses, No Rebound, No Rigidity, No Guarding Musculoskeletal-Full Range of Motion Bilaterally, No CVAT Extremities-No Cyanosis, No Clubbing, No Edema Nuero-Cranial Nerves II-XII grossly intact, Motor WNL, DTRs WNL, Strength WNL, Non Focal Psych-Normal Mood Admission and Anticipated Discharge Date Admission Date: September 15, 2019 Results & Data Results & Data ([facility]) Vital Signs (Past 12 Hours) Vital Signs Temp Pulse Resp BP Pulse Ox 09/16/19 07:51 36.7 C 78 18 127/81 95 09/15/19 23:16 36.7 C 102 H 20 155/88 H 97
[2019-09-16] MEDS ORDERED: PHARMACY GLYCEMIC MGMT CONSULT PRN (09:43)
[2019-09-16] MEDS: CIPROFLOXACIN / D5W 400 MG/200 ML BAG IV SCH ×2 (09:45→21:48)
--- NOTE | 2019-09-16 09:55 | Pharmacy Report ---
Glycemic Control Consultation - Date of Service September 16, 2019 - Scope Scope: Glycemic Pharmacist consulted for glycemic control and to write orders per [facility] inpatient glycemic control protocol. - Objective Weight: 104.5 kg Accuchecks BSG (last 24hrs): 09/15/19 09/15/19 09/16/19 18:10 22:29 04:57 Glucose 286 H 264 H POC Glucose 282 H 09/16/19 05:51 Glucose POC Glucose 230 H Laboratory Data (last 24hrs): 09/15/19 09/16/19 18:10 04:57 Potassium 3.1 L 4.3 D Carbon Dioxide 17 L 20 L Anion Gap 16.0 H 10.0 Creatinine 0.73 0.72 Est Cr Clr Drug Dosing 102.3 103.7 HbA1c: Hemoglobin A1c 12.6 % (4.5-5.6) H 09/16/19 04:57 - Recent Pertinent Medications Outpatient Anti-diabetic Regimen: * N/A The patient is currently receiving: * Correctional Insulin: Novolog Correction per scale ACHS Goal Range: Low 120 mg/dL - High 150 mg/dL Correction Factor: 30 mg/dL/unit * Prandial insulin: Per carb ratio of 1 unit per -- grams CHO consumed * Oral Agents: Risk Factors for Insulin Resistance: * Infection: cholecystitis - on Flagyl and Ciprofloxacin * Recent Surgery: planning for ERCP today * Diet: NPO - Assessment & Plan Assessment & Plan: ASSESSMENT: * Ms Thomas is a 53 y/o F who presented yesterday with upper abdominal pain. She was diagnosed with cholecystitis and is to undergo ERCP with possible lap parris today. Presenting BSG was 286 mg/dL. Fasting today was 264 mg/dL. HbA1C demonstrates diabetes. She is not on medications at home. Current NPO. * Provide 0.2 units/kg of Lantus today understanding patient is NPO. Additional 10 units tonight if patient remains over 220 mg/dL. Overnight checks added. Utilize weight-based stress 1-2 Novolog coverage for now. PLAN FOR INPATIENT GLYCEMIC CONTROL: * Basal insulin * Lantus 20 units SQ x 1 plus 10 units HS (if blood sugar over 220 mg/dL) * Bolus insulin * NovoLog per scale ACHS or Q6hrs while NPO * Goal Range: Low 120 mg/dL - High 150 mg/dL * Correction Factor: 25 mg/dL/unit * Nutritional / Prandial insulin per carb ratio of 1 unit per 8 grams CHO consumed * Please note that the plan above was derived based on current level of insulin resistance and hospital stress. These recommendations are appropriate for inpatient admission only. Plan of care upon discharge will need to be reassessed to avoid potential outpatient hypo/hyperglycemia. Thank you.
[2019-09-16] MEDS ORDERED: CONRAY 60% 50 ML VIAL ONE (09:59)
[2019-09-16] MEDS ORDERED: LIDOCAINE/EPINEPHRINE 1% 20 ML VIAL ONE (10:00)
[2019-09-16] MEDS ORDERED: INSULIN GLARGINE SOLOSTAR 100 UNITS/ML 3 ML PEN SC ONE (10:00)
--- NOTE | 2019-09-16 10:29 | History & Physical Bridge Note ---
Date of Service September 16, 2019 History & Physical Bridge Note I have examined the patient, reviewed the History & Physical and in the interval since the performance of the History & Physical I have noted the following changes of clinical significance: no changes noted. ERCP/cholecystectomy (with Dr. Quinones) planned for this morning. We have discussed the risks to include bleeding, infection, perforation, pain, pancreatitis, failed biliary cannulation and need for follow-up studies.
--- NOTE | 2019-09-16 10:31 | History & Physical Bridge Note ---
Date of Service September 16, 2019 History & Physical Bridge Note I have examined the patient, reviewed the History & Physical and in the interval since the performance of the History & Physical I have noted the following changes of clinical significance: no changes noted will proceed with koffi feng after ERCP today r and c explained to pt
[2019-09-16] MEDS ORDERED: fentaNYL citrate 100 MCG/2 ML VIAL IV PRN (10:52)
[2019-09-16] MEDS ORDERED: ePHEDrine sulfate 50 MG/ML AMP IV PRN (10:52)
[2019-09-16] MEDS ORDERED: ATROPINE SULFATE 0.1 MG/ML 10ML SYR IV PRN (10:52)
[2019-09-16] MEDS ORDERED: ONDANSETRON INJ 2 MG/ML 2 ML VIAL IV PRN (10:52)
--- NOTE | 2019-09-16 11:35 | Post Operative Brief Note ---
Immediate Post Op Note v1 Date of Surgery September 16, 2019 Pre & Post Diagnosis Operation Date: 09/16/19 07:00 Pre-Op Diagnosis: Choledocholithiasis, acalculous cholecystitis, acute gallstone pancreatitis Post-Op Diagnosis: Cholangitis I identified the patient and participated in the time-out.: Yes Procedure Operation Date: 09/16/19 07:00 Actual Procedures p Endoscopic Retrograde Cholangiopancreatogram - Sergio lugo Laparoscopic Cholecystectomy with Cholangiogram - Lefty Quinones MD Surgeon Sergio Byers Chemistry Lecturer None Estimated Blood Loss 0 Findings Consistent with Post-Op Diagnosis
--- NOTE | 2019-09-16 11:36 | Communication Note ---
Date of Service: September 16, 2019 Patient underwent ERCP this afternoon. This was notable for several stones within the common bile duct and cholangitis. 2 biliary stents were placed during today's examination. Recommendations Continue broad-spectrum antibiotics for a total of 14 days Repeat ERCP for stent removal in 4 to 6 weeks Avoid use of nonsteroidals for 1 week Continue IV hydration May have clear liquids from our perspective
--- NOTE | 2019-09-16 11:44 | GI REPORT ---
Patient Name: Olga Thomas Procedure Date: 09/16/2019 10:53 AM Date of : 1965 Admit Type: Inpatient Age: 53 Gender: Female Attending MD: Sergio Byers DO Procedure: ERCP Providers: Sergio Byers DO Referring MD: Jeet Morton Do, Salvatore Ramondelli Indications: Abdominal pain of suspected biliary origin, Abnormal MRCP Medicines: General Anesthesia Complications: No immediate complications. Estimated blood loss: Minimal. Estimated Blood Loss: Estimated blood loss was minimal. Procedure: Pre-Anesthesia Assessment: - Prior to the procedure, a History and Physical was performed, and patient medications, allergies and sensitivities were reviewed. The patient's tolerance of previous anesthesia was reviewed. - The risks and benefits of the procedure and the sedation options and risks were discussed with the patient. All questions were answered and informed consent was obtained. - Patient identification and proposed procedure were verified prior to the procedure by the physician, the nurse and the can reforming machine operator. The procedure was verified in the procedure room. - Pre-procedure physical examination revealed no contraindications to sedation. - ASA Grade Assessment: III - A patient with severe systemic disease. - After reviewing the risks and benefits, the patient was deemed in satisfactory condition to undergo the procedure. - The anesthesia plan was to use general anesthesia. - Immediately prior to administration of medications, the patient was re-assessed for adequacy to receive sedatives. - The heart rate, respiratory rate, oxygen saturations, blood pressure, adequacy of pulmonary ventilation, and response to care were monitored throughout the procedure. - The physical status of the patient was re-assessed after the procedure. After obtaining informed consent, the scope was passed under direct vision. Throughout the procedure, the patient's blood pressure, pulse, and oxygen saturations were monitored continuously. The SCOPE was introduced through the mouth, and advanced to the duodenum and used to inject contrast into the bile duct. The ERCP was accomplished without difficulty. The patient tolerated the procedure well. Findings: The nurse receptionist film was normal. The esophagus was successfully intubated under direct vision without detailed examination of the pharynx, larynx, and associated structures, and upper GI tract. The upper GI tract was grossly normal. Pus was emerging from the major papilla. The major papilla was bulging. The bile duct was deeply cannulated with the short-nosed traction sphincterotome and guidewire during the first attempt. The PD was not cannulated or injected today. Contrast was injected. I personally interpreted the bile duct images. Contrast extended to the hepatic ducts. The lower third of the main bile duct contained filling defect(s) thought to be a stone. Biliary sphincterotomy was made with a monofilament Fusion OMNI sphincterotome using ERBE electrocautery. There was no post-sphincterotomy bleeding. To discover objects, the biliary tree was swept with an 11.5 mm balloon starting at the bifurcation multiple times. Two darkly pigmented stones were removed. In addition, a large amount of pus was swept from the duct. No stones remained. Two 17 cm biliary stents (one 10 Fr and one 7 Fr) with a single external flap and a single internal flap were placed 7 cm into the common bile duct. Pus and bile flowed through the stents. The stents were in good position. The endoscope was withdrawn from the patient. Indomethacin 100 mg was given via suppository to decrease the risk of post-ERCP pancreatitis (PEP). The endoscope was withdrawn from the patient. Impression: - Pus was seen in the major papilla. - The major papilla appeared to be bulging. - A filling defect consistent with a stone was seen on the cholangiogram. - Choledocholithiasis was found. Complete removal was accomplished by biliary sphincterotomy,balloon extraction. - Two biliary stents were placed into the common bile duct due to underlying cholangitis. - Indomethacin given to decrease risk of post-ERCP pancreatitis. Recommendation: - Avoid aspirin and nonsteroidal anti-inflammatory medicines for 1 week. - Return [facility] for [facility] care. - Use broad spectrum antibiotics for 2 weeks. - Repeat ERCP in 4 to 6 weeks to remove stent. Sergio Byers D.O. Sergio Byers DO 09/16/2019 11:43:24 AM This report has been signed electronically. Note Initiated On: 09/16/2019 10:53 AM Number of Addenda: 0 I attest to the content of the Intraoperative Record and orders documented therein, exceptions below {[id number]}
[2019-09-16] MEDS ORDERED: LABETALOL HCL IV 5 MG/ML 20ML IV ONE (12:25)
[2019-09-16] MEDS ORDERED: ESMOLOL HCL INJ 10 MG/ML 10ML VIAL IV ONE (12:25)
[2019-09-16] MEDS ORDERED: GLYCOPYRROLATE 0.2 MG/ML VIAL ONE (13:01)
[2019-09-16] MEDS ORDERED: NEOSTIGMINE METHYLSULFATE 5 MG/5 ML SYR ONE (13:01)
[2019-09-16] MEDS ORDERED: SUCCINYLCHOLINE CHLORIDE 20 MG/ML 10 ML VIAL ONE (13:01)
--- NOTE | 2019-09-16 14:01 | Fluoroscopy Report ---
[place] ERCP biliary ductal CLINICAL HISTORY: ERCP COMPARISON STUDY: Right upper quadrant ultrasound September 15, 2019. MRCP September 16, 2019. FLUOROSCOPY TIME: 59 seconds. FLUOROSCOPIC IMAGES: 7 FINDINGS: These images demonstrate cannulation of the common bile duct with balloon sweep through the common bile duct. Initial images demonstrate filling defects within the common bile which favor calc dianne. IMPRESSION: Fluoroscopy provided for ERCP. ACT 112: Negative or not required by law. Electronically signed by: Amarjit Snider M.D. 09/16/2019 2:00 PM
--- NOTE | 2019-09-16 14:02 | Fluoroscopy Report ---
[place] cholangiogram OR CLINICAL HISTORY: CHOLANGIOGRAM COMPARISON STUDY: MRCP fluoroscopic images from ERCP performed earlier today. FLUOROSCOPY TIME: 2 seconds. FLUOROSCOPIC IMAGES: 1 FINDINGS: This image demonstrates contrast within the duodenum. No filling defects are identified to suggest choledocholithiasis. No aberrant biliary anatomy is identified. IMPRESSION: No filling defects to suggest choledocholithiasis. ACT 112: Negative or not required by law. Electronically signed by: Amarjit Snider M.D. 09/16/2019 2:01 PM
--- NOTE | 2019-09-16 14:03 | Post Operative Brief Note ---
PG Immediate Post Op with CF Date of Surgery September 16, 2019 Pre & Post Diagnosis Operation Date: 09/16/19 07:00 Pre-Op Diagnosis: Choledocholithiasis, acalculous cholecystitis, acute gallstone pancreatitis Post-Op Diagnosis: Cholangitis; Choledocholithiasis, acalculous cholecystitis, acute gallstone pancreatitis I identified the patient and participated in the time-out.: Yes Procedure Operation Date: 09/16/19 07:00 Actual Procedures p Endoscopic Retrograde Cholangiopancreatogram - Sergio lugo Laparoscopic Cholecystectomy with Cholangiogram - Lefty Quinones MD Surgeon Lefty Quinones MD Share Dairy Farmer None Estimated Blood Loss 100 Findings Consistent with Post-Op Diagnosis Specimens Specimen Description: Permanent Specimen A: Gallbladder Microbiology #1-Gallbladder Drains Gavin Drain (19Fr x 2)
--- NOTE | 2019-09-16 14:16 | Operative Report ---
PG Post Operative Report Pre & Post Diagnosis Operation Date: 09/16/19 07:00 Pre-Op Diagnosis: Choledocholithiasis, acalculous cholecystitis, acute gallstone pancreatitis Post-Op Diagnosis: Cholangitis; Choledocholithiasis, acalculous cholecystitis, acute gallstone panc reatitis I identified the patient and participated in the time-out.: Yes Procedure Operation Date: 09/16/19 07:00 Actual Procedures p Endoscopic Retrograde Cholangiopancreatogram - Sergio lugo Laparoscopic Cholecystectomy with Cholangiogram - Lefty Quinones MD Surgeon Lefty Quinones MD Curtain Roller Assembler None Estimated Blood Loss 100 I attest to the content of the Intraoperative Record and any orders documented therein. Any exceptions are noted below. Supervising Physician Co-Signing Physician Notes I saw and evaluated the patient. She presents with abdominal pain, elevated liver tests and imaging with evidence of choledocholithiasis. PE: Mild distress / abdominal tenderness Impression: patient with choledocholithiasis, we are planning for ERCP today with cholecystectomy.
[2019-09-16] MEDS ORDERED: NovoLIN-R INSULIN PER UNIT CHARGE ONE ×2 (14:52→14:57)
[2019-09-16] MEDS ORDERED: INSULIN HUMAN REGULAR PER UNIT 5 UNITS in SYRINGE 0 ML IV STA (14:55)
[2019-09-16] MEDS ORDERED: MoRPHine SULFATE 4 MG/ML 1 ML CARP\\VIAL IV PRN (15:57)
[2019-09-16] MEDS ORDERED: OXYCODONE/ACETAMINOPHEN 5mg/325mg TAB PO PRN (15:57)
--- NOTE | 2019-09-16 15:57 | Anesthesiology Progress Note ---
Date of Service September 16, 2019 Anesthesia Post Procedure Vital Signs Vital Signs: Temp Pulse Pulse Pulse Resp BP BP 09/16/19 15:35 68 22 153/81 H 09/16/19 15:25 36.4 C L 72 17 157/86 H 09/16/19 15:15 66 19 162/85 H 09/16/19 15:05 62 21 156/88 H 09/16/19 14:55 62 17 166/97 H 09/16/19 14:45 36.3 C L 62 20 181/103 H 09/16/19 10:32 37.2 C 76 18 163/96 H 09/16/19 10:12 36.9 C 79 18 123/82 09/16/19 07:51 36.7 C 78 18 127/81 09/15/19 23:16 36.7 C 102 H 20 155/88 H 09/15/19 21:21 80 18 133/68 09/15/19 20:05 81 20 144/86 H 09/15/19 17:51 36.8 C 117 H 16 155/83 H Pulse Ox 09/16/19 15:35 98 09/16/19 15:25 98 09/16/19 15:15 98 09/16/19 15:05 99 09/16/19 14:55 99 09/16/19 14:45 98 09/16/19 10:32 99 09/16/19 10:12 97 09/16/19 07:51 95 09/15/19 23:16 97 09/15/19 21:21 97 09/15/19 20:05 96 09/15/19 17:51 96 Pain Intensity Upper Abdomen: Pain Intensity: 7 Transfer of Care Handoff Completed per policy Notes Mental Status: alert / awake / arousable Patient Amnestic to Procedure: Yes Nausea / Vomiting: adequately controlled Pain: adequately controlled Airway Patency, RR, SpO2: stable & adequate BP & HR: stable & adequate Hydration State: stable & adequate Anesthetic Complications: no major complications apparent
[2019-09-16] MEDS ORDERED: INSULIN GLARGINE SOLOSTAR 100 UNITS/ML 3 ML PEN SC SCH (21:00)
[2019-09-17] MEDS: INSULIN ASPART 100 UNITS/ML 3 ML PEN SC SCH ×6 (00:11→21:06)
[2019-09-17] MEDS: LACTATED RINGER'S 1,000 ML IV SCH ×2 (01:02→05:15)
[2019-09-17] MEDS: HYDROmorphone INJ 0.5 MG/0.5 ML SYR IV PRN ×2 (01:49→05:26)
[2019-09-17] MEDS: metroNIDAZOLE 500 MG/100 ML BAG IV SCH ×3 (04:10→19:49)
[2019-09-17 05:55] LABS: Hematocrit (blood only) 36.2 % (37-47); Hemoglobin 12.4 g/dL (12.0-16.0); Mean Corpuscular Hemoglobin 30.5 pg (25-34); Mean Corpuscular Hgb Conc 34.3 g/dL (32-36); Mean Corpuscular Volume 88.9 fL (80-100); Mean Platelet Volume 9.6 fL (7.4-10.4); Platelet Count 220 K/uL (130-400); RDW Standard Deviation 45.7 fL (36.4-46.3); Red Blood Count 4.07 M/uL (4.2-5.4); White Blood Count 10.74 K/uL (4.8-10.8)
[2019-09-17 06:33] LABS: Albumin Globulin Ratio 0.5 (0.9-2); Albumin Level 2.1 gm/dl (3.4-5.0); BUN Creatinine Ratio 15.2 (10-20); Bilirubin,Total 4.8 mg/dl (0.2-1); Calcium 8.9 mg/dl (8.5-10.1); Creatinine Clr Calc Pharmacy 120.4 ml/min; Est GFR (African American) 120.2; Est GFR (Non-African American) 103.7; Globulin 4.3 gm/dl (2.5-4.0); Total Protein 6.4 gm/dl (6.4-8.2)
--- NOTE | 2019-09-17 07:29 | Hospitalist Progress Note ---
Date of Service September 17, 2019 Assessment & Plan (1) Cholecystitis: (2) Morbid obesity: (3) Acalculous cholecystitis: MRCP-IMPRESSION: 1. Findings highly suspicious for acute calculus cholecystitis with extensive choledocholithiasis. ERCP to be considered as well as surgical consultation. 2. No convincing evidence of pancreatitis, which does not exclude the diagnosis. Correlate with lipase. Surgery and GI on case Endoscopic Retrograde Cholangiopancreatogram - Sergio Byers Laparoscopic Cholecystectomy with Cholangiogram - Lefty Quinones MD Labs Checked ROS-No Headache, No Visual Changes, No Nausea, No Vomiting, No Fever, No Chills, No Neck Pain or Stiffness, No Chest Pain, No Palpitations, No SOB, No LAURA, No Cough, No Sputum, No Wheezing, +Abdominal Pain, No Diarrhea, No Hematemesis, No Hemoptysis, No Unexpected Weight Loss, No Flank pain, No Melena, No Hematochezia, No Frequency, No Urgency, No Burning, No Hematuria, No Rashes, No Diaphoresis. Appetite is Normal Physical Exam Gen-AAO x 3, NAD, Afebrile, Obese, Drains in place Head-NCAT, EOMI, PERRLA, Anicteric Sclera, No Posterior Pharyngeal Erythema Neck-Supple, No JVD, No Thyromegaly, No Masses, No LAD, No Bruits Lungs-Clear to Auscultation Bilaterally, No Rales, No Rhonchi, No Wheezing, No Crepitus Chest-No S4, +S1, +S2, No S3, No Murmurs, No Rubs, No Gallops, No Ectopy Abdomen-Soft, Bowel Sounds Present, midly Tender, Non Distended, No Hepatomegaly, No Splenomegaly, No Palpable Masses, No Rebound, No Rigidity, No Guarding Musculoskeletal-Full Range of Motion Bilaterally, No CVAT Extremities-No Cyanosis, No Clubbing, No Edema Nuero-Cranial Nerves II-XII grossly intact, Motor WNL, DTRs WNL, Strength WNL, Non Focal Psych-Normal Mood Admission and Anticipated Discharge Date Admission Date: September 15, 2019 Anticipated date of discharge: 09/18/19 Results & Data Results & Data ([facility]) Vital Signs (Past 12 Hours) Vital Signs Temp Pulse Resp BP Pulse Ox 09/17/19 04:01 36.7 C 89 20 121/80 92 09/16/19 23:36 36.9 C 93 H 24 116/76 93
[2019-09-17] MEDS ORDERED: INSULIN GLARGINE SOLOSTAR 100 UNITS/ML 3 ML PEN SC SCH (09:00)
--- NOTE | 2019-09-17 09:18 | Surgery Progress Note ---
Date of Service September 17, 2019 Assessment & Plan (1) Cholecystitis: POD#1 lap parris and ERCP with stent placement WBC: 10.7 and patient afebrile LFT's downtrending, Tbili:4.8(7.4), AST: 84 (171), ALT: 304, AlkP: 647(715) DAVID's with serosang output, DAVID#1 under liver bed & DAVID#2 in pelvis Continue IV abx today Okay to advance diet as tolerates Would keep in hospital for today yet Pt seen and examined with Dr. Quinones Subjective Patient feels okay this AM, said it's a different type of pain now from when she came in. Physical Exam Physical Exam: awake/alert Gastrointestinal (Abdomen): Inspection/Auscultation: + abdominal surgical incision (c/d/i) and + abdominal surgical drain present (JP1: 95cc, JP2: 135cc, serosang); abdomen not distended Percussion/Palpation: + abdomen tender (some ttp tong- RUQ) and abdomen soft Results & Data Vital Signs (Past 12 Hours) Vital Signs Temp Pulse Resp BP Pulse Ox 09/17/19 08:25 36.5 C 91 H 18 126/80 92 09/17/19 04:01 36.7 C 89 20 121/80 92 09/16/19 23:36 36.9 C 93 H 24 116/76 93 PG Care Time/CCT Total # of Minutes Spent Total Time Spent with Patient: Total time spent is greater than 50% in coordination of care (as documented) at patient's floor/unit and/or counseling patient: Coding Level of Care Code None Diagnoses Cholecystitis K81.9
--- NOTE | 2019-09-17 09:30 | Gastroenterology Progress Note ---
Date of Service September 17, 2019 Assessment & Plan (1) Cholecystitis: Pt is a 53 y/o female w cholecystitis, choledocholithiasis, gallstone pancreatitis s/p ERCP w choledocholithiasis removal, biliary sphincterectomy, biliary stents x 2 placement and lap cholecystectomy on 09/16/2019. She was found to have cholangitis during the ERCP. LFTs currently trending down, she remains afebrile overnight on Cipro/Flagyl antibx. - Trend LFTs - Diet advancement per surgery - DC LR IVF since tolerating PO intake - KCl 20meq IV for K repletion (3) - Encouraged OOB, ambulation and use of incentive spirometry - Avoid NSAIDs, ASA x 1 week after sphincterectomy - Antibx x 2 weeks given cholangitis - GI master scheduler will contact her to schedule repeat ERCP in 6 weeks time to remove biliary stents - GI will sign off; pls recall prn Admission and Anticipated Discharge Date Admission Date: September 15, 2019 Anticipated date of discharge: 09/18/19 Supervising Physician Co-Signing Physician Notes Attending attestation I have seen, examined this patient, and agree with the findings and above by our mid-level provider CHEPE Kahn, with the following additions. - Doing well post ERCP. Will need repeat with Dr. Byers. Office will contact. - Looks well today. Subjective Pt reports having abd pain mostly on RUQ area. She is tolerating FL diet now, denies any n/v. Denies any fever, chills, CP, SOB LFTs trending down, afebrile. Review of Systems Review of Systems: All systems reviewed & are unremarkable except as noted in HPI & below Physical Exam Constitutional: WD/WN, vitals as above well groomed and cooperative Eyes: PERRL, conjunctivae normal, anicteric sclerae ENMT: external ear and nose normal, oropharynx normal Respiratory: normal respiratory effort, lungs clear to auscultation Cardiovascular: RRR, no murmur, no edema Gastrointestinal (Abdomen): Inspection/Auscultation: + hypoactive bowel sounds Percussion/Palpation: + abdomen tender (diffuse) and abdomen soft Surgical dressing on abd s/p lap parris CDI. DAVID drain x 2 on R abd area w serosangenous discharge Skin: no rashes, warm and dry + jaundice (mild) Psychiatric: A+Ox3, euthymic affect Lymphatic: no lymphedema Results & Data ([facility]) Vital Signs (Past 12 Hours) Vital Signs Temp Pulse Resp BP Pulse Ox 09/17/19 08:25 36.5 C 91 H 18 126/80 92 09/17/19 04:01 36.7 C 89 20 121/80 92 09/16/19 23:36 36.9 C 93 H 24 116/76 93
[2019-09-17] MEDS: CIPROFLOXACIN / D5W 400 MG/200 ML BAG IV SCH ×2 (09:45→22:02)
[2019-09-17] MEDS: POTASSIUM CHLORIDE / WTR 10 MEQ/100 ML PLCT IV SCH ×2 (09:53→10:58)
--- NOTE | 2019-09-17 11:23 | Pharmacy Report ---
Pharmacy Glycemic Short Note 2 - Date of Service September 17, 2019 - Glycemic Short BSG Results (Last 24 hours): 09/16/19 09/16/19 09/16/19 10:47 14:49 15:25 Glucose POC Glucose 233 H 316 H* 262 H 09/16/19 09/16/19 09/17/19 17:24 20:42 00:10 Glucose POC Glucose 295 H 252 H 267 H 09/17/19 09/17/19 09/17/19 03:59 05:28 08:20 Glucose 203 H POC Glucose 212 H 192 H OUTPATIENT ANTIDIABETIC REGIMEN: * n/a * A1c = 12.6% (09/16/19) ASSESSMENT: * 53 yo F with cholecystitis POD#1 s/p lap parris and ERCP with stent placement * Patient advanced to full liquid diet after procedure * Fasting BSG of 192 mg/dL this morning. She received a total of 40 units of basal insulin yesterday. Will continue to titrate doses. * Post prandial BSGs all above goal therefore Novolog CF/CR will be tightened * After discussion with CDE, will transition to Novolin 70/30 this evening per patient has no insurance and this is one of the most affordable insulin options. Will base dosing on ~70 units/day. PLAN FOR INPATIENT GLYCEMIC CONTROL: * Start metformin 500 mg ER once daily with dinner * Basal insulin * Lantus 20 units SQ this morning * Change to Novolin 70/30 starting with dinner - 45 units SQ with breakfast and 25 units SQ with dinner * Bolus insulin * NovoLog per scale ACHS or Q6hrs while NPO * Goal Range: Low 120 mg/dL - High 150 mg/dL * Correction Factor: 15 mg/dL/unit * Nutritional / Prandial insulin per carb ratio of 1 unit per 5 grams CHO consumed * Remove carb ratio when Novolin 70/30 starts PLAN FOR DISCHARGE: * A1c of 12.6 % indicates diagnosis of diabetes * Recommend Novolin 70/30 + metformin * Start metformin 500 mg ER once daily with dinner. Continue to titrate metformin dosing upwards as recommended. Dosage increases should be made in increments of 500 mg weekly, up to 2,000 mg/day PO, given in divided doses. Doses above 2000 mg/day may be better tolerated if divided and given 3 times per day with meals. Max: 2,550 mg/day PO, in divided doses. B12 supplementation may be necessary with tank terminal gauger metformin * Novolin 70/30 SQ twice daily with meals (doses to be determined on 09/17)
[2019-09-17] MEDS: OXYCODONE/ACETAMINOPHEN 5mg/325mg TAB PO PRN (14:00)
[2019-09-17] MEDS: METFORMIN HCL ER 500 MG TABCR PO SCH (18:02)
[2019-09-17] MEDS: INSULIN HUMAN 70% NPH/30% REGULAR SC SCH (18:09)
[2019-09-18] MEDS: metroNIDAZOLE 500 MG/100 ML BAG IV SCH ×2 (04:33→12:38)
[2019-09-18 06:00] LABS: Hematocrit (blood only) 35.8 % (37-47); Mean Corpuscular Hemoglobin 29.9 pg (25-34); Mean Corpuscular Hgb Conc 33.5 g/dL (32-36); Mean Corpuscular Volume 89.3 fL (80-100); Mean Platelet Volume 10.2 fL (7.4-10.4); Platelet Count 233 K/uL (130-400); RDW Standard Deviation 45.7 fL (36.4-46.3); Red Blood Count 4.01 M/uL (4.2-5.4); White Blood Count 10.41 K/uL (4.8-10.8)
[2019-09-18 06:53] LABS: BUN Creatinine Ratio 16.4 (10-20); Calcium 9.1 mg/dl (8.5-10.1); Creatinine Clr Calc Pharmacy 186.6 ml/min; Est GFR (African American) 138.8; Est GFR (Non-African American) 119.8; Potassium 2.8 mmol/L (3.5-5.1)
[2019-09-18] MEDS: INSULIN ASPART 100 UNITS/ML 3 ML PEN SC SCH ×4 (08:42→20:50)
[2019-09-18] MEDS: INSULIN HUMAN 70% NPH/30% REGULAR SC SCH ×2 (08:43→17:57)
[2019-09-18] MEDS: OXYCODONE/ACETAMINOPHEN 5mg/325mg TAB PO PRN (08:46)
--- NOTE | 2019-09-18 09:20 | Pharmacy Report ---
Pharmacy Glycemic Short Note 2 - Date of Service September 18, 2019 - Glycemic Short BSG Results (Last 24 hours): OUTPATIENT ANTIDIABETIC REGIMEN: * n/a * A1c = 12.6% (09/16/19) ASSESSMENT: * 53 yo F with cholecystitis POD#2 s/p lap parris and ERCP with stent placement * Patient advanced to T2DM diet with lunch today * Fasting BSG is 135 mg/dL this AM. 24 hour range is 135-258 mg/dL. Patient received 88 units of insulin total yesterday, 45 basal + 43 bolus. * Patient was transitioned to Novolin 70/30 last evening based on total daily dose of ~ 70 units/day. Patient was also started on Metformin ER 500 mg last evening. * CR removed when patient started on 70/30 insulin PLAN FOR INPATIENT GLYCEMIC CONTROL: * Metformin 500 mg ER once daily with dinner * Basal insulin * Novolin 70/30 - 45 units SQ with breakfast and 25 units SQ with dinner * Bolus insulin * NovoLog per scale ACHS or Q6hrs while NPO * Goal Range: Low 120 mg/dL - High 150 mg/dL * Correction Factor: 15 mg/dL/unit * Nutritional / Prandial insulin - none PLAN FOR DISCHARGE: * A1c of 12.6 % indicates diagnosis of diabetes * Recommend Novolin 70/30 + metformin * Start metformin 500 mg ER once daily with dinner. Continue to titrate metformin dosing upwards as recommended. Dosage increases should be made in increments of 500 mg weekly, up to 2,000 mg/day PO, given in divided doses. Doses above 2000 mg/day may be better tolerated if divided and given 3 times per day with meals. Max: 2,550 mg/day PO, in divided doses. B12 supplementation may be necessary with longterm metformin * Novolin 70/30 SQ 45 units with breakfast and 25 units with dinner. Recommend SMBG ACHS for near future. Recommend close follow-up with outpatient provider. Patient should be educated on signs/symptoms of hypoglycemia and how to effectively treat hypoglycemia (rule of 15, etc).
--- NOTE | 2019-09-18 09:58 | Surgery Progress Note ---
Date of Service September 18, 2019 Assessment & Plan (1) Cholecystitis: POD#2 lap parris and ERCP with stent placement WBC: 10.4 and patient afebrile Okay to advance diet as tolerates Would complete course of abx Will need electrolytes replenished (have been ordered by medicine), K: 2.8 Pt to be discharged with both DAVID drains in place, will ask RN to provide teaching prior to discharge From a surgical standpoint she is doing okay, dispo today vs tomorrow pending medicine clearance Will ask pt to follow up in surgery clinic next wk for DAVID drain removal as above. doing as expected. will advance diet per Dr. Quinones, pt to go home with both drains. ok for d/c with us whenever ok with primary service. f/u in 1 week in our office. Subjective Patient says she feels a little sore today, but overall okay. Tolerating full liquid diet, will advance to regular this AM. Physical Exam Physical Exam: awake/alert Gastrointestinal (Abdomen): Inspection/Auscultation: + abdominal surgical incision (c/d/i) and + abdominal surgical drain present (JP1 (35cc), JP2 (30cc), serosang. ) Results & Data Vital Signs (Past 12 Hours) Vital Signs Temp Pulse Pulse Resp BP Pulse Ox 09/18/19 08:00 93 09/18/19 07:10 36.9 C 90 18 131/84 94 09/17/19 23:39 36.8 C 93 H 22 128/83 90 PG Care Time/CCT Total # of Minutes Spent Total Time Spent with Patient: Total time spent is greater than 50% in coordination of care (as documented) at patient's floor/unit and/or counseling patient: Coding Level of Care Code None Diagnoses Cholecystitis K81.9
[2019-09-18] MEDS ORDERED: POTASSIUM CHLORIDE 20 MEQ TABCR PO ONE (10:00)
[2019-09-18] MEDS: CIPROFLOXACIN / D5W 400 MG/200 ML BAG IV SCH (10:05)
[2019-09-18] MEDS: POTASSIUM CHLORIDE / WTR 10 MEQ/100 ML PLCT IV SCH ×2 (10:06→11:02)
[2019-09-18] MEDS: METFORMIN HCL ER 500 MG TABCR PO SCH (17:47)
[2019-09-18] MEDS: DOCUSATE SODIUM 100 MG CAP PO SCH (17:47)
[2019-09-18] MEDS: POLYETHYLENE (MIRALAX) 17 GM PACK PO PRN (17:48)
--- NOTE | 2019-09-18 19:09 | Hospitalist Progress Note ---
Date of Service September 18, 2019 Assessment & Plan (1) Cholecystitis: Acute cholangitis Choledocholithiasis Acalculous cholecystitis Acute gallstone pancreatitis S/P ERCP with biliary Stent placement S/P Lap Cholecystectomy: POD #2 --ERCP: - Pus was seen in the major papilla. The major papilla appeared to be bulging. A filling defect consistent with a stone was seen on the cholangiogram. Choledocholithiasis was found. Complete removal was accomplished by biliary sphincterotomy,balloon extraction. Two biliary stents were placed into the common bile duct due to underlying cholangitis. Indomethacin given to decrease risk of post-ERCP pancreatitis. --Avoid aspirin, NSAIDs for 1 week --Continue antibiotics for 2 weeks --Needs repeat ERCP in 4 to 6 weeks for stent removal --Appreciate GI/Surgery Input --Pain control --Advance diet as tolerated --Continue wound care Hypokalemia Check Mag levels Replace electrolytes as needed DM II Hb A1C:12.6 Plan to discharge on insulin, PO meds Monitor BGs Morbid Obesity: BMI:42 DVT Px: SCDs Code Status Full Code Admission and Anticipated Discharge Date Admission Date: September 15, 2019 Anticipated date of discharge: 09/18/19 Subjective Patient is seen and examined at bedside States having mild pain at the surgical site + flatus Tolerating diet Denies any chest pain, shortness of breath, dizziness, nausea Review of Systems Review of Systems: All systems reviewed & are unremarkable except as noted in HPI & below Physical Exam Physical Exam: Physical Exam: Vitals signs as noted above General Appearance:Morbidly Obese, no apparent distress Head: normocephalic, Atraumatic Eyes: normal inspection, EOMI Neck: supple, Trachea midline Respiratory/Chest: Normal breath sounds, CTA Cardiovascular: S1, S2, No murmur Abdomen/GI:Soft, Non tender, Bowel sounds present, surgical site in dressing Extremities/Musculoskelatal:normal inspection, no edema Neurologic/Psych:AAOX3, grossly no focal neurological deficits Skin: normal color, warm Results & Data Results & Data ([facility]) Vital Signs (Past 12 Hours) Vital Signs Temp Pulse Pulse Resp BP Pulse Ox 09/18/19 15:14 36.7 C 83 18 120/77 97 09/18/19 08:00 93 09/18/19 07:10 36.9 C 90 18 131/84 94 Laboratory Results Short CBC 09/18/19 Range/Units 04:54 WBC 10.41 (4.8-10.8) K/uL Hgb 12.0 (12.0-16.0) g/dL Hct 35.8 L (37-47) % Plt Count 233 (130-400) K/uL BMP 09/18/19 04:54 Sodium 138 Potassium 2.8 L Chloride 104 Carbon Dioxide 27 BUN 7 Creatinine 0.40 L Glucose 122 H Calcium 9.1
[2019-09-18] MEDS: CIPROFLOXACIN 500 MG TAB PO SCH (20:45)
[2019-09-18] MEDS: metroNIDAZOLE 500 MG TAB PO SCH (21:26)
[2019-09-19 05:35] LABS: BUN Creatinine Ratio 19.3 (10-20); Calcium 8.3 mg/dl (8.5-10.1); Creatinine Clr Calc Pharmacy 186.6 ml/min; Est GFR (African American) 138.8; Est GFR (Non-African American) 119.8; Magnesium 1.7 mg/dl (1.8-2.4); Potassium 2.7 mmol/L (3.5-5.1)
[2019-09-19] MEDS: metroNIDAZOLE 500 MG TAB PO SCH ×3 (05:56→21:07)
[2019-09-19] MEDS ORDERED: POTASSIUM CHLORIDE 20 MEQ TABCR PO STA ×2 (06:31→16:41)
[2019-09-19] MEDS ORDERED: MAGNESIUM SULFATE / D5W 1 GM/100 ML BAG IV ONE (06:31)
[2019-09-19] MEDS: INSULIN ASPART 100 UNITS/ML 3 ML PEN SC SCH ×5 (08:16→21:08)
[2019-09-19] MEDS ORDERED: POTASSIUM CHLORIDE 20 MEQ TABCR PO ONE (08:30)
[2019-09-19] MEDS: DOCUSATE SODIUM 100 MG CAP PO SCH ×2 (08:38→21:06)
[2019-09-19] MEDS: CIPROFLOXACIN 500 MG TAB PO SCH ×2 (08:38→21:07)
[2019-09-19] MEDS: INSULIN HUMAN 70% NPH/30% REGULAR SC SCH ×2 (08:41→17:19)
--- NOTE | 2019-09-19 08:53 | Pharmacy Report ---
Pharmacy Glycemic Short Note 2 - Date of Service September 19, 2019 - Glycemic Short BSG Results (Last 24 hours): OUTPATIENT ANTIDIABETIC REGIMEN: * New Diagnosis * A1c = 12.6% (09/16/19) ASSESSMENT: * 53 yo F with cholecystitis POD#3 s/p lap parris and ERCP with stent placement * Patient advanced to a full T2DM diet yesterday. * Fasting BSG is 129 mg/dL this AM. 24 hour range is 129-278 mg/dL. Patient received 85 units of insulin total yesterday, 70 basal + 15 bolus. * Patient has been transitioned to Novolin 70/30 + Metformin. CR removed when patient started on 70/30 insulin. Tolerating well. * Lunch and bedtime BSGs consistently elevated. Therefore, will tighten CF to 10 during breakfast and dinner to compensate. CF will remain at 15 for lunch and bedtime. Goal range also tightened to 110-140 mg/dL PLAN FOR INPATIENT GLYCEMIC CONTROL: * Metformin 500 mg ER once daily with dinner * Basal insulin * Novolin 70/30 - 45 units SQ with breakfast and 25 units SQ with dinner * Bolus insulin - tightened * NovoLog per scale ACHS or Q6hrs while NPO * Goal Range: Low 110 mg/dL - High 140 mg/dL * Correction Factor: 10 mg/dL/unit @ 0730 & 1630; 15 mg/dL/unit @ 1130 & 2100 * Nutritional / Prandial insulin - none PLAN FOR DISCHARGE: * A1c of 12.6 % indicates diagnosis of diabetes * Recommend Novolin 70/30 + metformin * Start metformin 500 mg ER once daily with dinner. Continue to titrate metformin dosing upwards as recommended. Dosage increases should be made in increments of 500 mg weekly, up to 2,000 mg/day PO, given in divided doses. Doses above 2000 mg/day may be better tolerated if divided and given 3 times per day with meals. Max: 2,550 mg/day PO, in divided doses. B12 supplementation may be necessary with fdc metformin * Novolin 70/30 SQ 45 units with breakfast and 25 units with dinner. Recommend SMBG ACHS for near future. Recommend close follow-up with outpatient provider. Patient should be educated on signs/symptoms of hypoglycemia and how to effectively treat hypoglycemia (rule of 15, etc).
--- NOTE | 2019-09-19 09:02 | Surgery Progress Note ---
Date of Service September 19, 2019 Assessment & Plan (1) Cholecystitis: POD#3 lap parris and ERCP with stent placement ok for d/c if tolerates diet instructions given, will remove drains next week in clinic Subjective not much appetite yesterday Physical Exam Gastrointestinal (Abdomen): Percussion/Palpation: abdomen soft DAVID drainage serous Results & Data Vital Signs (Past 12 Hours) Vital Signs Temp Pulse Pulse Resp BP Pulse Ox 09/19/19 07:16 36.7 C 75 17 121/85 95 09/18/19 23:23 36.9 C 82 20 129/84 95 PG Care Time/CCT Total # of Minutes Spent Total Time Spent with Patient: Total time spent is greater than 50% in coordination of care (as documented) at patient's floor/unit and/or counseling patient: Coding Level of Care Code None Diagnoses Cholecystitis K81.9
[2019-09-19 16:33] LABS: Calcium 8.7 mg/dl (8.5-10.1); Creatinine Clr Calc Pharmacy 135.7 ml/min; Est GFR (Non-African American) 107.8; Magnesium 1.9 mg/dl (1.8-2.4); Potassium 3.3 mmol/L (3.5-5.1)
[2019-09-19] MEDS: METFORMIN HCL ER 500 MG TABCR PO SCH (16:57)
--- NOTE | 2019-09-19 17:10 | Hospitalist Progress Note ---
Date of Service September 19, 2019 Assessment & Plan (1) Cholecystitis: Acute cholangitis Choledocholithiasis Acalculous cholecystitis Acute gallstone pancreatitis S/P ERCP with biliary Stent placement S/P Lap Cholecystectomy: POD #3 --ERCP: - Pus was seen in the major papilla. The major papilla appeared to be bulging. A filling defect consistent with a stone was seen on the cholangiogram. Choledocholithiasis was found. Complete removal was accomplished by biliary sphincterotomy,balloon extraction. Two biliary stents were placed into the common bile duct due to underlying cholangitis. Indomethacin given to decrease risk of post-ERCP pancreatitis. --Avoid aspirin, NSAIDs for 1 week --Continue antibiotics for 2 weeks--On Cipro and Flagyl --Needs repeat ERCP in 4 to 6 weeks for stent removal --Appreciate GI/Surgery Input --Pain control --Continue wound care --Poor oral intake --Slowly Improving Hypokalemia Hypomagnesemia Replace electrolytes as needed DM II Hb A1C:12.6 Plan to discharge on insulin, PO meds Monitor BGs Morbid Obesity: BMI:42 DVT Px: SCDs Code Status Full Code Admission and Anticipated Discharge Date Admission Date: September 15, 2019 Anticipated date of discharge: 09/18/19 Subjective Patient is seen and examined at bedside today morning Nauseous this morning but later resolved +Flatus, No BM yet No significant pain at surgical site Poor Appetite Denies any chest pain, shortness of breath, dizziness, nausea Review of Systems Review of Systems: All systems reviewed & are unremarkable except as noted in HPI & below Physical Exam Physical Exam: Physical Exam: Vitals signs as noted above General Appearance:Morbidly Obese, no apparent distress Head: normocephalic, Atraumatic Eyes: normal inspection, EOMI Neck: supple, Trachea midline Respiratory/Chest: Normal breath sounds, CTA Cardiovascular: S1, S2, No murmur Abdomen/GI:Soft, Non tender, Bowel sounds present, surgical site in dressing Extremities/Musculoskelatal:normal inspection, no edema Neurologic/Psych:AAOX3, grossly no focal neurological deficits Skin: normal color, warm Results & Data Results & Data ([facility]) Vital Signs (Past 12 Hours) Vital Signs Temp Pulse Pulse Resp BP Pulse Ox 09/19/19 15:07 36.7 C 77 16 131/87 97 09/19/19 07:16 36.7 C 75 17 121/[address] [facility] 09/19/19 09/19/19 04:45 15:42 Sodium 139 138 Potassium 2.7 L 3.3 L D Chloride 108 H 105 Carbon Dioxide 27 28 BUN 8 9 Creatinine 0.40 L 0.55 L Glucose 97 149 H Calcium 8.3 L 8.7
[2019-09-20] MEDS: metroNIDAZOLE 500 MG TAB PO SCH (05:05)
[2019-09-20] MEDS: POLYETHYLENE (MIRALAX) 17 GM PACK PO PRN (06:30)
[2019-09-20 07:05] LABS: Calcium 8.4 mg/dl (8.5-10.1); Creatinine Clr Calc Pharmacy 191.4 ml/min; Est GFR (Non-African American) 120.8; Magnesium 1.9 mg/dl (1.8-2.4); Potassium 3.6 mmol/L (3.5-5.1)
--- NOTE | 2019-09-20 08:43 | Surgery Progress Note ---
Date of Service September 20, 2019 Assessment & Plan (1) Cholecystitis: POD 4 lap parris ok for d/c with drains, will remove next week Subjective appetite improved, had BM Physical Exam Gastrointestinal (Abdomen): Inspection/Auscultation: + abdominal surgical incision (clean dry, DAVID drainage serous) Percussion/Palpation: abdomen soft Results & Data Vital Signs (Past 12 Hours) Vital Signs Temp Pulse Pulse Resp BP Pulse Ox 09/20/19 07:10 36.6 C 71 16 125/83 96 09/19/19 23:10 36.8 C 78 22 129/84 96 PG Care Time/CCT Total # of Minutes Spent Total Time Spent with Patient: Total time spent is greater than 50% in coordination of care (as documented) at patient's floor/unit and/or counseling patient: Coding Level of Care Code None Diagnoses Cholecystitis K81.9
[2019-09-20] MEDS: INSULIN ASPART 100 UNITS/ML 3 ML PEN SC SCH ×3 (09:30→12:10)
[2019-09-20] MEDS: INSULIN HUMAN 70% NPH/30% REGULAR SC SCH (09:31)
--- NOTE | 2019-09-20 09:37 | Pharmacy Report ---
Pharmacy Glycemic Short Note 2 - Date of Service September 20, 2019 - Glycemic Short BSG Results (Last 24 hours): OUTPATIENT ANTIDIABETIC REGIMEN: * New Diagnosis * A1c = 12.6% (09/16/19) ASSESSMENT: * 53 yo F with cholecystitis POD#4 s/p lap parris and ERCP with stent placement. Tolerating diet. To be discharged with DAVID drains in place. * BSGs over past 24 hours have been well-controlled: [phone]. Yesterday, used 70 units of Novolin 70/30 and only 1 unit of bolus insulin. This is good to see as Novolin 70/30 will cover both basal and prandial needs as an outpatient. * Fasting BSG was 125 mg/dL this AM. Will fall back on CF to 15 units ACHS as patient did not require tightened CF yesterday. PLAN FOR INPATIENT GLYCEMIC CONTROL: * Metformin 500 mg ER once daily with dinner * Basal insulin * Novolin 70/30 - 45 units SQ with breakfast and 25 units SQ with dinner * Bolus insulin - loosened * NovoLog per scale ACHS or Q6hrs while NPO * Goal Range: Low 110 mg/dL - High 140 mg/dL * Correction Factor: 15 * Nutritional / Prandial insulin - none PLAN FOR DISCHARGE: * A1c of 12.6 % indicates diagnosis of diabetes * Recommend Novolin 70/30 + metformin * Start metformin 500 mg ER once daily with dinner. Continue to titrate metformin dosing upwards as recommended. Dosage increases should be made in increments of 500 mg weekly, up to 2,000 mg/day PO, given in divided doses. Doses above 2000 mg/day may be better tolerated if divided and given 3 times per day with meals. Max: 2,550 mg/day PO, in divided doses. B12 supplementation may be necessary with dropper tank storage metformin * Novolin 70/30 SQ 45 units with breakfast and 25 units with dinner. Recommen d SMBG ACHS for near future. Recommend close follow-up with outpatient provider. Patient should be educated on signs/symptoms of hypoglycemia and how to effectively treat hypoglycemia (rule of 15, etc).
[2019-09-20] MEDS: DOCUSATE SODIUM 100 MG CAP PO SCH (09:50)
[2019-09-20] MEDS: CIPROFLOXACIN 500 MG TAB PO SCH (09:50)
[2019-09-20] MEDS ORDERED: AMOXICILLIN/CLAVULANATE 875 MG TAB PO SCH (10:30)
--- NOTE | 2019-09-20 11:59 | Hospitalist Progress Note ---
Date of Service September 20, 2019 Assessment & Plan (1) Cholecystitis: Acute cholangitis Choledocholithiasis Acalculous cholecystitis Acute gallstone pancreatitis S/P ERCP with biliary Stent placement S/P Lap Cholecystectomy: POD #4 --ERCP: - Pus was seen in the major papilla. The major papilla appeared to be bulging. A filling defect consistent with a stone was seen on the cholangiogram. Choledocholithiasis was found. Complete removal was accomplished by biliary sphincterotomy,balloon extraction. Two biliary stents were placed into the common bile duct due to underlying cholangitis. Indomethacin given to decrease risk of post-ERCP pancreatitis. --Avoid aspirin, NSAIDs for 1 week --Continue antibiotics for 2 weeks --Gall Bladder Cx: Growing Streptococcus Anginosus --We will switch antibiotics from Cipro and Flagyl to Augmentin. --Needs repeat ERCP in 4 to 6 weeks for stent removal --Appreciate GI/Surgery Input --Pain control --Continue wound care Hypokalemia Hypomagnesemia Replace electrolytes as needed DM II Hb A1C:12.6 Plan to discharge on insulin, PO meds Monitor BGs Morbid Obesity: BMI:42 DVT Px: SCDs Code Status Full Code Admission and Anticipated Discharge Date Admission Date: September 15, 2019 Anticipated date of discharge: 09/18/19 Subjective Patient is seen and examined at bedside today morning Doing well today Had BM No significant pain at surgical site Appetite improving Denies any chest pain, shortness of breath, dizziness, nausea Review of Systems Review of Systems: All systems reviewed & are unremarkable except as noted in HPI & below Physical Exam Physical Exam: Physical Exam: Vitals signs as noted above General Appearance:Morbidly Obese, no apparent distress Head: normocephalic, Atraumatic Eyes: normal inspection, EOMI Neck: supple, Trachea midline Respiratory/Chest: Normal breath sounds, CTA Cardiovascular: S1, S2, No murmur Abdomen/GI:Soft, Non tender, Bowel sounds present, surgical site in dressing Extremities/Musculoskelatal:normal inspection, no edema Neurologic/Psych:AAOX3, grossly no focal neurological deficits Skin: normal color, warm Results & Data Results & Data ([facility]) Vital Signs (Past 12 Hours) Vital Signs Temp Pulse Pulse Resp BP Pulse Ox 09/20/19 10:15 36.6 C 71 78 16 125/83 96 09/20/19 07:10 36.6 C 71 16 125/83 96 Laboratory Results [facility] 09/19/19 09/20/19 15:42 06:16 Sodium 138 138 Potassium 3.3 L D 3.6 Chloride 105 105 Carbon Dioxide 28 26 BUN 9 8 Creatinine 0.55 L 0.39 L Glucose 149 H 104 H Calcium 8.7 8.4 L
--- NOTE | 2019-09-20 12:09 | Discharge Summary ---
Date of Service September 20, 2019 Admission HPI Per Admitting Provider CHIEF COMPLAINT: Abdominal pain. HISTORY OF PRESENT ILLNESS: This 53-year-old female with past medical history significant for diabetes and hypertension, no longer taking medications since lost insurance about 2 years ago. Lives with her .Presents with abdominal pain in the epigastric region radiating to the back, started on last after eating [employer]o wings. She is nauseous. Pain t initially in the first couple of days was 10/10 in severity but today before she come in here it was 8/10 severity. With pain medications it is mild now. Denies any fever, chills, somewhat constipated, but that is normal to her. Denies any blood in stools or black stools. Normal bladder movements. No hematuria or burning micturition, no swelling in the legs. No rash. No sick contacts, no travel outside the [employer]. No loss of smell or taste. No shortness of breath, no chest pain. Denies any fever, chills, no sore throat, no difficulty swallowing. Appetite is down last few days, feeling weak. Denies any headaches, no blurred vision, no earache, no runny nose, no sore throat. Currently resting comfortably and hemodynamically stable. Admission Exam Per Admitting Provider PHYSICAL EXAMINATION: GENERAL: The patient is obese, not in acute distress. VITAL SIGNS: Temperature 36.8, pulse 81, respiratory rate 20, blood pressure 144/86, oxygen 96% room air. HEENT: Pupils equal, round, reactive to light. Extraocular muscles intact. NECK: Supple. CARDIOVASCULAR: S1, S2 heard, regular rate and rhythm, no murmur, no gallop. RESPIRATORY SYSTEM: Normal AP diameter. No accessory muscle use. No wheezing, no crackles. ABDOMEN: Soft, bowel sounds present. Currently nontender. No distention, no guarding. CENTRAL NERVOUS SYSTEM: Cranial nerves II-XII grossly intact. Nonfocal. EXTREMITIES: No edema, no erythema. Principal Diagnosis Acute cholangitis Choledocholithiasis Acalculous cholecystitis Acute gallstone pancreatitis Diabetes Mellitus Type II: New Diagnosis Hypokalemia Discharge Data Allergies Allergy/AdvReac Type Severity Reaction Status Date / Time No Known Allergies Allergy Verified 09/16/19 10:50 Consultations 09/15/19 20:29 ED Decision to Admit Stat 09/15/19 21:57 Consult Case Management - Discharge Planning Routine 09/16/19 08:00 Consult Gastroenterology Routine Consult General Surgery Routine Procedures Performed Operation Date: 09/16/19 07:00 Actual Procedures s Endoscopic Retrograde Cholangiopancreatogram - Sergio vu Laparoscopic Cholecystectomy with Cholangiogram - Lefty Quinones MD --ERCP: - Pus was seen in the major papilla. The major papilla appeared to be bulging. A filling defect consistent with a stone was seen on the cholangiogram. Choledocholithiasis was found. Complete removal was accomplished by biliary sphincterotomy,balloon extraction. Two biliary stents were placed into the common bile duct due to underlying cholangitis. Indomethacin given to decrease risk of post-ERCP pancreatitis. --Chest CTA: No evidence for pulmonary embolus. Mild intrahepatic bile duct dilatation. -Gall Bladder USD:The gallbladder is filled with stones and sludge. There is mild gallbladder wall thickening and dilatation of the common bile duct. F indings are concerning for acute cholecystitis. Clinical correlation recommended. Mild hepatomegaly demonstrating fatty change. Ordered Studies 09/15/19 18:02 US gallbladder Stat 09/15/19 19:01 CT angio chest PE protocol Stat 09/16/19 02:30 MR MRCP Urgent 09/16/19 07:00 FL ERCP biliary ductal Routine FL cholangiogram OR Routine Hospital Course (1) Cholecystitis: Acute cholangitis Choledocholithiasis Acalculous cholecystitis Acute gallstone pancreatitis S/P ERCP with biliary Stent placement S/P Lap Cholecystectomy: POD #4 --ERCP: - Pus was seen in the major papilla. The major papilla appeared to be bulging. A filling defect consistent with a stone was seen on the cholangiogram. Choledocholithiasis was found. Complete removal was accomplished by biliary sphincterotomy,balloon extraction. Two biliary stents were placed into the common bile duct due to underlying cholangitis. Indomethacin given to decrease risk of post-ERCP pancreatitis. --Avoid aspirin, NSAIDs for 1 week --Continue antibiotics for 2 weeks --Gall Bladder Cx: Growing Streptococcus Anginosus --We will switch antibiotics from Cipro and Flagyl to Augmentin. --Needs repeat ERCP in 4 to 6 weeks for stent removal --Appreciate GI/Surgery Input --Pain control --Continue wound care Hypokalemia Hypomagnesemia Replace electrolytes as needed DM II Hb A1C:12.6 Plan to discharge on insulin, PO meds Monitor BGs Morbid Obesity: BMI:42 DVT Px: SCDs Code Status Full Code Total Time Total Time Spent Total Time Spent (In Minutes): 40 minutes Total Time Includes: Examination of the Patient, Discharge Planning, Medication Reconciliation, Communication With Other Providers and Other Discharge Plan Discharge Items Patient Disposition: Home - Self-Care Reason For Visit: ABDOMINAL PAIN Discharge Diagnosis: Acute cholangitis Choledocholithiasis Acalculous cholecystitis Acute gallstone pancreatitis Hypokalemia Diabetes mellitus Type II--New diagnosis Activity: As commented below Lifting: No more than 10 pounds Bathing Comment: ok to shower, leave seri-strips on until your appt Driving/Machine Use: Resume 3 days after discharge Non-emergency contact: Primary Care Provider, Surgeon and Shift Supervisor Melting Call non-emergency contact if: you have any medication questions, your symptoms worsen, your pain is not controlled, your pain is worsening, you have a fever, your temperature is above 101.5, your wound has increased redness, your wound has increased drainage and your wound pain has increased Follow-up/Referrals: Lefty Quinones MD [Surgeon] - (Call the office to make an appt to have drain(s) removed next week) Ciro Haynes MD [Outside Practitioners] - 09/24/19 8:20 am (09/24/2019 8:20 AM Ciro Haynes MD [facility] ) Diet: Carb Consistent or DM2 and Heart Healthy Addtl Attending Provider Instructions: Follow-up with your primary care physician Dr. Haynes on September 24, 2027 8:05 AM Follow-up with your surgeon Dr. Zhou next week for drain removal as advised Follow-up with your customer care consultant Dr.Marten Byers for ERCP in 4 to 6 weeks for biliary stent removal Complete antibiotic course--Augmentin as prescribed Discussed with your primary care physician for management of your diabetes. Monitor your blood glucose levels regularly. Seek immediate medical attention if your symptoms reoccur or worsen Addtl Braiding Machine Tender Provider Instructions: Empty drain 2-3 times daily as needed follow up with Dr. Zhou monday or monday next week for drain removal. Pending Studies at Discharge: Yes Studies:: Blood Cultures--Follow up with your Physician for results Stand-Alone Forms: My [employer], Smoking Cessation Medications and DC Order Prescriptions: New oxycodone-acetaminophen [Percocet] 5-325 mg tablet 1 - 2 tab PO Q4H PRN (Reason: pain, initial therapy, max 6 daily) Qty: 15 RF: 0 Novolin 70/30 U-100 Insulin 100 unit/mL (70-30) Suspension 45 unit SC QDB 30 Days Qty: 13.5 RF: 1 amoxicillin-pot clavulanate [Augmentin] 875-125 mg Tablet 1 tab PO BIDM 10 Days Qty: 20 RF: 0 Novolin 70/30 U-100 Insulin 100 unit/mL (70-30) Suspension 25 unit SC QDD 30 Days Qty: 7.5 RF: 1 metformin 500 mg Tablet Extended Release 24 Hr 500 mg PO QDD 30 Days Qty: 30 RF: 0 Discharge Orders: Discharge Order (Routine); Ordered 09/20/19 Ordered By: Prosper Alfaro/Other Patient Handouts: Diabetes and Heart Disease, Diabetes Developmental Mathematics Instructor Complications, Blood Sugar Check, Diabetes Healthy Meals, Diabetes Exercise Benefits, Diabetes Manage A1C Test Admission Data Admit Date/Time: 09/15/19 20:59 Attending Provider: Prosper Johnson Admit Provider: Jer Cohen Primary Care Provider: KHRIS MANLEY Other Providers: Jer Cohen ; Jett Bradley ; Keke Culp ; Zoie Montoya ; Joanna Velazquez ; Dioni Leslie ; Sergio Byers ; Nicol Cavanaugh ; Vivian Castillo ; Boni Jarquin ; Darren Feliz ; Ibis Figueroa ; Karla Orozco ; Aisha Jack ; Fabienne Guillory ; Estephania Williamson ; Lefty Quinones Other Interventions: Discharge Summary Assessment (RN) Last Done: 09/20/19 10:15 DC Date/Time DO NOT enter until pt leaves facility: 09/20/19 14:23
--- NOTE | 2019-09-23 07:16 | Post Operative Brief Note ---
PG Immediate Post Op with CF Date of Surgery September 23, 2019 Pre & Post Diagnosis Operation Date: 09/16/19 07:00 Pre-Op Diagnosis: Choledocholithiasis, acalculous cholecystitis, acute gallstone pancreatitis Post-Op Diagnosis: Cholangitis; Choledocholithiasis, acalculous cholecystitis, acute gallstone pancreatitis I identified the patient and participated in the time-out.: Yes Procedure Operation Date: 09/16/19 07:00 Actual Procedures s Endoscopic Retrograde Cholangiopancreatogram - Sergio vu Laparoscopic Cholecystectomy with Cholangiogram - Lefty Quinones MD The patient was in the supine position under general anesthesia he just completed an ERCP by Dr. Jamil Byers patient was identified a timeout was had systemic antibiotics and given the abdomen was prepped Betadine solution properly draped made a small incision supraumbilically sufficient enough to enter with a Veress needle the patient had a very large panniculus but it extended a whole needle into the abdomen CO2 insufflated followed by the camera point of interest bacteroids identified on direct visualization a 5 mm epigastric 2 5 mm subcostal ports were placed with preemptive local analgesic 1% Xylocaine some adhesions of the gallbladder were taken down the gallbladder was very thick-walled we are able to place under traction dissection was very tedious the patient has significant chronic inflammation in the area as we elevated the gallbladder of the fundus small opening in the gallbladder was made the patient had significant amount of fluid in the gallbladder wall and in the gallbladder under tension the child out across the abdomen once we had deflated this we were able then to dissect out towards the nikko hepatis patient dissection as stated was very thick chronic inflammation we irrigated able to get a plane of dissection neck of the gallbladder identified look at the takeoff of the cystic duct which we clipped clipped proximally with a small opening cystic duct we then positioned the Cholangiocath with a balloon serial x-rays were taken which showed really redundant tortuous cystic duct but we well aware away from the common bile duct. At this point we remove the Cholangiocath we checked up on the cystic duct doubly clipped and securely with a 10 mm clips we had converted the 5 mm epigastric trocar to 11 mm gallbladder was then taken out in antegrade fashion leaving as much as possible the posterior peritoneum very little bleeding was appreciated into the liver the gallbladder was then off the liver was placed in an Endopouch and taken out in pieces through the epigastric port subhepatic suprahepatic area was checked hemostasis appear satisfactory we did have 100 cc of bleeding mostly from the dissection no overt pulsatile bleeding ever appreciated I elected at this point to drain with 2 drains after we suctioned out the subhepatic suprahepatic area with 2 Gavin drains the one in the subcostal area was positioned underneath the liver the right upper quadrant one was positioned on the pelvis. Once this is been completed we then were able to close the wounds with 4-0 Monocryl and Steri-Strips applied procedure was tolerated well by the patient estimated blood loss 100 cc addendumB melanie richardson was present throughout the procedure and help retraction exposure camera work and wound closure I have dictated this operative note at the time of the surgery and unbeknownst to me I do not know where he went this was a second dictation down today 09/23/2019 Surgeon Lefty Quinones MD Gastroenterology Physician b melanie richardson Estimated Blood Loss 100 Findings Consistent with Post-Op Diagnosis Specimens Specimen Description: Permanent Specimen A: Gallbladder Microbiology #1-Gallbladder Drains Gavin Drain (19Fr x 2)
== END 2019-09-20 14:23 | disposition home or self-care (01) | DRG 417 ==
LOC: ED 17:48 → SUATTDRO 20:59 → 3E 20:59